=== PATIENT | male | born 1985 | race Asian ===

== ENCOUNTER 2021-06-29 09:44 | Outpatient (REF) | payer BC, SELFPAY ==
[2021-06-29 13:08] LABS: Folate 10.7 ng/mL (> or = 4.0); Vitamin B12 > 2000 pg/mL (200-900)
[2021-06-30 13:27] LABS: Transglutaminase Ab IgG <1.0 U/mL; Transglutaminase IgA <1.0 U/mL
[2021-07-01 14:26] LABS: H Pylori Breath Test Negative (Negative)
[2021-07-03 15:41] LABS: Vitamin D 25-OH, D2 <4 ng/mL; Vitamin D 25-OH, D3 47 ng/mL; Vitamin D 25-OH, Total 47 ng/mL (30-100)
== END 2021-06-29 09:45 | disposition home or self-care (01) ==
LOC: HO.LAB 09:44
PROVIDERS: PCP Internal Medicine; Referring Provider Internal Medicine; Visit Provider Nurse Practitioner Family
DX: R10.9 Unspecified abdominal pain (principal); K27.9 Peptic ulcer, site unspecified, unspecified as acute or chronic, without hemorrhage or perforation; K21.9 Gastro-esophageal reflux disease without esophagitis; E55.9 Vitamin D deficiency, unspecified; R19.7 Diarrhea, unspecified
CPT/HCPCS: 36415; 82306; 82607; 82746; 83013; 86364

== ENCOUNTER 2021-07-18 17:50 | Outpatient (REF) | payer BC, SELFPAY | END 2021-07-18 17:51 | disposition home or self-care (01) | LOC: HO.LNP 17:50 | PROVIDERS: Visit Provider Nurse Practitioner Family | DX: R30.0 Dysuria (principal) | CPT/HCPCS: 87086 ==

== ENCOUNTER → 2021-07-31 14:07 | Outpatient (REF) | payer BC, SELFPAY ==
--- NOTE | 2021-07-31 14:17 | ECG_ITS ---
Test Reason : r42 Blood Pressure : / mmHG Vent. Rate : 074 BPM Atrial Rate : 074 BPM P-R Int : 166 ms QRS Dur : 088 ms QT Int : 378 ms P-R-T Axes : 073 062 053 degrees QTc Int : 419 ms Normal sinus rhythm with sinus arrhythmia Normal ECG No previous ECGs available Referred By: Shira Franklin Electronically Signed By:MYRON ENRIQUEZ MD
[2021-07-31 14:31] LABS: MANUAL DIFF FLAG NO
[2021-07-31 14:56] LABS: Basophils Absolute Auto 0.1 X10*3/uL (0.0-0.2); Eosinophils Percent Auto 0.5 % (0-4); Hematocrit 46.8 % (42.0-52.0); Hemoglobin 16.2 g/dl (14.0-18.0); Imm Gran Abs Auto 0.01 X10*3/uL (0.00-0.03); Imm Gran Pct Auto 0.1 % (0.0-0.4); Lymphocytes Absolute Auto 2.1 X10*3/uL (1.2-4.9); Lymphocytes Percent Auto 26.3 % (20-40); Mean Corpuscular HGB Conc 34.6 g/dl (31.0-36.0); Mean Corpuscular Hemoglobin 31.8 pg (27.0-33.0); Mean Corpuscular Volume 91.8 fL (80.0-98.0); Mean Platelet Volume 10.2 fL (9.4-12.4); Monocytes Absolute Auto 0.6 X10*3/uL (0.1-1.2); Neutrophils Absolute Auto 5.2 x10*3/uL (2.0-8.3); Neutrophils Percent Auto 65.1 % (45-73); Platelet Count 247 X10*3/uL (160-400); Red Cell Distribution Width 11.7 % (11.0-16.0)
[2021-07-31 15:16] LABS: Alanine Aminotransferase 32 U/L (0-40); Albumin Level 4.7 g/dL (3.5-5.0); Alkaline Phosphatase 50 U/L (39-117); Anion Gap 12 (12-20); Aspartate Amino Transferase 23 U/L (5-37); Blood Urea Nitrogen 12 mg/dL (9-16); Calcium 10.3 mg/dL (8.4-10.2); Carbon Dioxide 29 mmol/L (22-29); Chloride 104 mmol/L (96-108); Estimated Glomerular Filt Rate > 60; Glucose Random 109 mg/dL (60-115); Potassium 3.8 mmol/L (3.3-5.1); Sodium 141 mmol/L (135-145); Total Protein 8.5 g/dL (6.5-8.0)
[2021-07-31 15:37] LABS: TSH reflex Free T4 0.85 uIU/mL (0.32-4.0)
== END ==
LOC: HO.CARD 14:07
PROVIDERS: PCP Internal Medicine; Visit Provider Nurse Practitioner Acute Care
DX: R42 Dizziness and giddiness (principal)
CPT/HCPCS: 36415; 80053; 84443; 85025; 93005

== ENCOUNTER 2021-08-29 01:33 | Emergency (ER) | payer BC, SELFPAY ==
[2021-08-29 01:41] VITALS: BP 127/87; PULSE 92; RESP 20; TEMP 36.7; O2SAT 98; BMI 23.4
--- NOTE | 2021-08-29 01:44 | ECG_ITS ---
Test Reason : SOB Blood Pressure : / mmHG Vent. Rate : 083 BPM Atrial Rate : 083 BPM P-R Int : 164 ms QRS Dur : 092 ms QT Int : 382 ms P-R-T Axes : 079 077 064 degrees QTc Int : 448 ms Normal sinus rhythm Normal ECG When compared with ECG of 31-JUL-2021 14:16, No significant change was found Referred By: Generic ED Physician Electronically Signed By:MYRON ENRIQUEZ MD
[2021-08-29 01:55] LABS: Hematocrit 45.1 % (42.0-52.0); Hemoglobin 15.4 g/dl (14.0-18.0); Mean Corpuscular HGB Conc 34.1 g/dl (31.0-36.0); Mean Corpuscular Hemoglobin 30.8 pg (27.0-33.0); Mean Corpuscular Volume 90.2 fL (80.0-98.0); Mean Platelet Volume 9.6 fL (9.4-12.4); Platelet Count 237 X10*3/uL (160-400); Red Cell Distribution Width 11.7 % (11.0-16.0); White Blood Count 7.9 X10*3/uL (4.8-10.8)
[2021-08-29 02:12] LABS: Alanine Aminotransferase 59 U/L (0-40); Albumin Level 4.5 g/dL (3.5-5.0); Alkaline Phosphatase 50 U/L (39-117); Anion Gap 13 (12-20); Aspartate Amino Transferase 31 U/L (5-37); Blood Urea Nitrogen 11 mg/dL (9-16); Calcium 10.3 mg/dL (8.4-10.2); Carbon Dioxide 28 mmol/L (22-29); Chloride 101 mmol/L (96-108); Creatinine Clr Calc Pharmacy 89.9; Estimated Glomerular Filt Rate > 60; Glucose Random 110 mg/dL (60-115); Sodium 138 mmol/L (135-145)
[2021-08-29 02:13] LABS: COVID-19 Test Negative (Negative); IDNOW Serial# 08D9AD1C; Influenza A Negative (Negative); Influenza B2 Negative (Negative)
--- NOTE | 2021-08-29 07:20 | ED.GENADULT ---
HPI - General Adult General Chief complaint: Anxiety Stated complaint: Trouble Breathing, anxiety Time Seen by Provider: 08/29/21 07:20 Source: patient Mode of arrival: ambulatory Limitations: no limitations History of Present Illness HPI narrative: patient having frequent panic attacks, waking up short of breath, feeling tingling. He is having these feelings at night. Feels lightheaded and slightly short of breath. He has not seen Dr. Traore Onset (ago): month(s) Severity: mild Associated symptoms: weakness Related Data Previous Rx's Medication Instructions Recorded omeprazole 20 mg capsule,delayed 20 mg PO DAILY 90 Days #90 cap 07/10/21 release hydroxyzine HCl 25 mg tablet 25 mg PO TID PRN #42 tab 07/31/21 melatonin 5 mg capsule 5 mg PO .at bed time #30 cap 08/29/21 pantoprazole 40 mg tablet,delayed 40 mg PO DAILY #20 tab 08/29/21 release (Protonix) Allergies Allergy/AdvReac Type Severity Reaction Status Date / Time No Known Allergies Allergy Verified 07/31/21 13:40 Review of Systems Constitutional: Constitutional: Reports no additional constitutional complaints Eyes: Eyes: Reports no additional eye complaints ENT: Denies dizziness Cardiovascular: Cardiovascular: Reports no additional cardiovascular complaints Respiratory: Respiratory: Reports as per HPI Gastrointestinal: Gastrointestinal: Reports no additional gastrointestinal complaints Musculoskeletal: Musculoskeletal: Reports no additional musculoskeletal complaints Integumentary/Breasts: Skin/Breast: Denies rash Neurologic: Reports system reviewed and no additional complaints, except as documented, Denies dizziness and Denies Sensory deficit (Neuro) Psychiatric: Psychiatric: Denies anxiety [facility] Past Medical History Medical History Chronic GERD Peptic ulcer disease Surgical History Hx of esophagogastroduodenoscopy No pertinent past surgical history Family History Family History Mother No problems noted. Father No problems noted. Sister Leukemia Social History Social History Housing: Apartment Alcohol intake: never Patient Tobacco Use Status: Never used Tobacco e-Cigarette/Vaping Use: Never Used Second Hand Smoke Exposure: No Advance Directives: No Advance Directives Information Provided: No service: No Current occupational status: employed Cognitive needs: No Hearing needs: No Vision needs: Yes Physical Exam ED Vital Signs: Vital Signs - 24 hr 08/29/21 01:41 08/29/21 07:57 08/29/21 10:27 Temperature 98.1 F 98.2 F 98.3 F Pulse Rate 92 64 Respiratory Rate 20 17 69 H Blood Pressure 127/87 122/74 120/67 Pulse Oximetry 98 100 99 BMI result Body Mass Index 23.4 Const General: healthy appearing Nutritional Appearance: average body habitus Orientation/consciousness: oriented to person and patient oriented x3 Limitations: no limitations HENMT Head: Yes normal to inspection Ears: external ears normal General nose exam: Normal external nose present Mouth: Normal oral and palatal mucosa present and oropharynx normal Throat: Yes posterior oropharynx normal Eyes General: appearance normal, both eyes and all related structures Neck Neck: Yes normal visual inspection Chest Chest palpation & inspection: normal inspection of the chest Resp Auscultation: clear to auscultation bilaterally Cardio Jugular venous distension: no JVD Rate: regular rate Rhythm: regular rhythm Heart sounds: S1 normal heart sound present and S2 normal heart sound present GI Inspection: Yes normal to inspection Palpation (GI): Soft to palpation, nontender and No hepatosplenomegaly present Auscultation: normal bowel sounds General: Yes no CVA tenderness Back/Spine/Pelvis Back: no CVA tenderness Skin General skin exam: no rashes or lesions noted Neuro General: oriented to person and patient oriented x3 Cranial nerves: Yes CN's II-XII intact bilaterally Motor exam (neuro): 5/5 motor strength present throughout Sensory Exam: No Sensory deficit (Neuro) Extrem General: Yes normal to inspection Psych Appearance: grossly normal Course Reevaluation(s) Reevaluation #1: seen and cleared by crisis. Will start on melatonin for sleep Time: 10:55 Medical Decision Making Lab Data Result diagrams: 08/29/21 01:46 08/29/21 01:46 Labs: Lab Results 08/29/21 08/29/21 08/29/21 Range/Units 01:46 01:46 01:46 WBC 7.9 (4.8-10.8) X10*3/uL RBC 5.00 (4.60-5.80) X10*6/uL Hgb 15.4 (14.0-18.0) g/dl Hct 45.1 (42.0-52.0) % MCV 90.2 (80.0-98.0) fL MCH 30.8 (27.0-33.0) pg MCHC 34.1 (31.0-36.0) g/dl RDW 11.7 (11.0-16.0) % Plt Count 237 (160-400) X10*3/uL MPV 9.6 (9.4-12.4) fL Absolute Nucleated RBC 0.000 (0.0-0.012) X10*3/uL Nucleated RBC % (auto) 0.0 (0.0-0.2) /100WBC Sodium 138 (135-145) mmol/L Potassium 4.0 (3.3-5.1) mmol/L Chloride 101 (96-108) mmol/L Carbon Dioxide 28 (22-29) mmol/L Anion Gap 13 (12-20) BUN 11 (9-16) mg/dL Creatinine 1.27 (0.5-1.4) mg/dL Estim Creat Clear Calc 89.9 Estimated GFR > 60 Random Glucose 110 (60-115) mg/dL Calcium 10.3 H (8.4-10.2) mg/dL Total Bilirubin 1.0 (0.0-1.0) mg/dL AST 31 (5-37) U/L ALT 59 H (0-40) U/L Alkaline Phosphatase 50 (39-117) U/L Total Protein 8.0 (6.5-8.0) g/dL Albumin 4.5 (3.5-5.0) g/dL COVID-19 (DEANNA) (Negative) COVID-19 Clin Com Influenza Type A (NASH) Negative (Negative) Influenza Type B (NASH) Negative (Negative) Influenza A & B Note See Note 08/29/21 Range/Units 01:46 WBC (4.8-10.8) X10*3/uL RBC (4.60-5.80) X10*6/uL Hgb (14.0-18.0) g/dl Hct (42.0-52.0) % MCV (80.0-98.0) fL MCH (27.0-33.0) pg MCHC (31.0-36.0) g/dl RDW (11.0-16.0) % Plt Count (160-400) X10*3/uL MPV (9.4-12.4) fL Absolute Nucleated RBC (0.0-0.012) X10*3/uL Nucleated RBC % (auto) (0.0-0.2) /100WBC Sodium (135-145) mmol/L Potassium (3.3-5.1) mmol/L Chloride (96-108) mmol/L Carbon Dioxide (22-29) mmol/L Anion Gap (12-20) BUN (9-16) mg/dL Creatinine (0.5-1.4) mg/dL Estim Creat Clear Calc Estimated GFR Random Glucose (60-115) mg/dL Calcium (8.4-10.2) mg/dL Total Bilirubin (0.0-1.0) mg/dL AST (5-37) U/L ALT (0-40) U/L Alkaline Phosphatase (39-117) U/L Total Protein (6.5-8.0) g/dL Albumin (3.5-5.0) g/dL COVID-19 (DEANNA) Negative (Negative) COVID-19 Clin Com See Note Influenza Type A (NASH) (Negative) Influenza Type B (NASH) (Negative) Influenza A & B Note Discharge Plan Discharge Clinical Impression: Acute anxiety, Chronic GERD Patient Disposition: Home, Self-Care Instructions: Gastroesophageal Reflux Disease (ED), Anxiety (ED) Prescriptions: New pantoprazole [Protonix] 40 mg tablet,delayed release (DR/EC) 40 mg PO DAILY Qty: 20 0RF melatonin 5 mg capsule 5 mg PO .at bed time Qty: 30 0RF No Action omeprazole 20 mg capsule,delayed release(DR/EC) 20 mg PO DAILY 90 Days Qty: 90 1RF hydroxyzine HCl 25 mg tablet 25 mg PO TID PRN (Reason: anxiety) Qty: 42 0RF Referrals: Aminata Manjarrez MD [Primary Care Provider] - 5 days
[2021-08-29 07:57] VITALS: BP 122/74; PULSE 64; RESP 17; TEMP 36.8; O2SAT 100
--- NOTE | 2021-08-29 09:14 | PC.NURSE ---
SMART SHEET DONE BY THIS RN
[2021-08-29 10:27] VITALS: BP 120/67; RESP 69; TEMP 36.8; O2SAT 99
--- NOTE | 2021-08-29 13:58 | MHC.CARE ---
CARE Team receives an order for a consult for pt due to an anxiety attack.? CARE Team meets with pt who explains that approximately a year and a half ago, pt relocated from [facility] to the with his girlfriend.? Pt reports that his parents are still in [facility] but he has sisters in the in [place].? 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 As a result his work/life balance has become unbalanced.? Pt stated that around the time his workload and work hours increased, he began to experience panic attacks and feelings of anxiety.? He stated that he has no hx of panic attacks or anxiety.? He reports that the panic attacks have been worsening and he has been awoken at night by them.? He stated that they have increased in number and he has been sleeping only 2-3hours a night. The benefits of securing a therapist were discussed with pt as well as the benefits of boundaries and work life balance.? Pt stated that he will begin looking for a therapist via [employer].? Interventions were discussed with pt and it was suggested he try these when he feels himself becoming anxious.? Pt requested medications to help him sleep.? CARE Team advises Dr. Morin.
== END 2021-08-29 11:14 | disposition home or self-care (01) ==
PROVIDERS: Emergency Provider Emergency Medicine; PCP Internal Medicine
DX: F41.9 Anxiety disorder, unspecified (principal); K21.9 Gastro-esophageal reflux disease without esophagitis; Z20.822 Contact with and (suspected) exposure to COVID-19
CPT/HCPCS: 80053; 85027; 87502; 87635; 93005; 99283

== ENCOUNTER 2021-10-09 14:04 | Outpatient (REF) | payer BC, SELFPAY | END 2021-10-09 14:05 | disposition home or self-care (01) | LOC: HO.LAB 14:04 | PROVIDERS: PCP Internal Medicine; Visit Provider Internal Medicine | DX: Z13.89 Encounter for screening for other disorder (principal) ==

== ENCOUNTER 2021-10-11 09:47 | Outpatient (REF) | payer BC, SELFPAY ==
[2021-10-11 11:04] LABS: Alanine Aminotransferase 40 U/L (0-40); Albumin Level 4.9 g/dL (3.5-5.0); Alkaline Phosphatase 52 U/L (39-117); Anion Gap 13 (12-20); Aspartate Amino Transferase 30 U/L (5-37); Blood Urea Nitrogen 14 mg/dL (9-16); Calcium 9.8 mg/dL (8.4-10.2); Carbon Dioxide 28 mmol/L (22-29); Chloride 103 mmol/L (96-108); Cholesterol 190 mg/dL; Estimated Glomerular Filt Rate > 60; Glucose Fasting 96 mg/dL (60-99); HDL Cholesterol 44 mg/dL; LDL Cholesterol Calculated 125 mg/dl; Potassium 4.1 mmol/L (3.3-5.1); Sodium 140 mmol/L (135-145); Total Protein 8.4 g/dL (6.5-8.0); Triglycerides 108 mg/dL
[2021-10-12 13:26] LABS: Calcium (PTHI) 10.1 mg/dL (8.6-10.3); PTHI 34 pg/mL (16-77)
[2021-10-13 19:32] LABS: Calcium, Random Urine 7.6 mg/dL
[2021-10-17 12:41] LABS: Calcium, Ionized 5.2 mg/dL (4.8-5.6)
== END 2021-10-11 09:48 | disposition home or self-care (01) ==
LOC: HO.LAB 09:47
PROVIDERS: PCP Internal Medicine; Visit Provider Internal Medicine
DX: Z00.00 Encounter for general adult medical examination without abnormal findings (principal); E83.52 Hypercalcemia
CPT/HCPCS: 36415; 80053; 80061; 82310; 82330; 83970

== ENCOUNTER 2021-10-15 08:11 | Day surgery (SDC) | payer BC, SELFPAY ==
--- NOTE | 2021-10-12 08:27 | HO.ANESPROP2 ---
Documented by User: Zoe Gallo NP 10/12/21 08:29 HPI - Anesthesia Eval Consult details Narrative: 36yo M for Upper Endoscopy PMF Active Problems Active Problems: All Active Problems (Updated 10/09/21 @ 09:45 by Vesta Nicholson RN) Burning with urination (Acute) Generalized anxiety disorder (Acute) Lightheadedness (Acute) Palpitations (Acute) Hospital discharge follow-up (Acute) Physical exam (Acute) Hypercalcemia (Acute) Tinnitus, left ear (Acute) BPPV (benign paroxysmal positional vertigo) (Acute) Peptic ulcer disease (Acute) Chronic GERD (Acute) Past Medical History Medical History Anxiety BPPV (benign paroxysmal positional vertigo) Chronic GERD Hypercalcemia Peptic ulcer disease Tinnitus, left ear Family History Family History Mother No problems noted. Father No problems noted. Sister Leukemia Surgical History Surgical History Hx of esophagogastroduodenoscopy No pertinent past surgical history Social History Social History Housing: Apartment Alcohol intake: never Patient Tobacco Use Status: Never used Tobacco e-Cigarette/Vaping Use: Never Used Second Hand Smoke Exposure: No Are you DNR?: No Advance Directives: No Advance Directives Information Provided: Yes Advance Directives on File: No Nutrition Risks: No Nutritional Risk service: No Current occupational status: employed Cognitive needs: No Hearing needs: No Vision needs: Yes Meds Allergies Allergy/AdvReac Type Severity Reaction Status Date / Time hydroxyzine Allergy Intermediate Palpitation Verified 10/15/21 08:23 s famotidine AdvReac Itching Verified 10/15/21 08:23 shellfish derived AdvReac Itching Verified 10/15/21 08:23 Home Medications Medication Instructions Recorded Confirmed Last Taken Type famotidine 10 mg tablet 40 mg PO DAILY 09/06/21 10/09/21 Unknown History Exam Exam Date and Time: October 12, [id number] Pertinent Lab Results Pertinent Lab Results: Laboratory Tests 08/29/21 10/11/21 01:46 10:17 WBC 7.9 Hgb 15.4 Hct 45.1 Plt Count 237 Sodium 140 Potassium 4.1 Chloride 103 Carbon Dioxide 28 BUN 14 Creatinine 1.06 Narrative Narrative: EKG 08/2021 Vent. Rate : 083 BPM ? ? Atrial Rate : 083 BPM ?? P-R Int : 164 ms? QRS Dur : 092 ms ? ? QT Int : 382 ms ? ? ? P-R-T Axes : 079 077 064 degrees ?? QTc Int : 448 ms ? Normal sinus rhythm Normal ECG When compared with ECG of 31-JUL-2021 14:16, No significant change was found Assessment and Plan Assessment Anesthesia Assessment: Chart Reviewed Documented by User: Ajit Myrick MD 10/15/21 08:26 PMFSH Past Medical History Medical History Anxiety BPPV (benign paroxysmal positional vertigo) Chronic GERD Hypercalcemia Peptic ulcer disease Tinnitus, left ear Family History Family History Mother No problems noted. Father No problems noted. Sister Leukemia Family history of problems with anesthesia: No Surgical History Surgical History Hx of esophagogastroduodenoscopy No pertinent past surgical history History of Problems with Anesthesia: No Social History Social History Housing: Apartment Alcohol intake: never Patient Tobacco Use Status: Never used Tobacco e-Cigarette/Vaping Use: Never Used Second Hand Smoke Exposure: No Are you DNR?: No Advance Directives: No Advance Directives Information Provided: Yes Advance Directives on File: No Nutrition Risks: No Nutritional Risk service: No Current occupational status: employed Cognitive needs: No Hearing needs: No Vision needs: Yes Meds Allergies Allergy/AdvReac Type Severity Reaction Status Date / Time hydroxyzine Allergy Intermediate Palpitation Verified 10/15/21 08:23 s famotidine AdvReac Itching Verified 10/15/21 08:23 shellfish derived AdvReac Itching Verified 10/15/21 08:23 Home Medications Medication Instructions Recorded Confirmed Last Taken Type famotidine 10 mg tablet 40 mg PO DAILY 09/06/21 10/09/21 Unknown History Exam Airway Mallampati Class: II TM Dist: >3cm Neck ROM: Full Loose/Missing/Broken Teeth: No Heart: rrr Lungs: clear Assessment and Plan Final Anesthetic Review Family History of Problems with Anesthesia: No History of Problems with Anesthesia: No NPO: Yes ASA Class: II Final Preanesthetic Review: No Changes in Pt Med Stat, Meds/Allgs Chart Reviewed, Consent Obtained/Reviewed and Anes Risks/Benef Reviewed Patient Risk: Low Procedure Risk: Low Anesthetic Plan Anesthetic Plan: MAC: Disposition: Standard PACU
[2021-10-15 08:20] VITALS: BMI 23.0
[2021-10-15 08:30] VITALS: BP 131/78; PULSE 72; RESP 18; TEMP 36.7; O2SAT 99
[2021-10-15] MEDS: Lactated Ringers 1,000 ML 100 ML IVCONT (08:43)
--- NOTE | 2021-10-15 09:18 | MHC.SHP ---
Pre-Procedural Eval Section A Date of Service: 10/15/21 The patient is an INPATIENT: No The History & Physical has been completed within 30 days and I have reviewed it.: No Section B Chief Complaint: reflux disease Details of Present Illness: GERD, abdominal bloating Relevant Family History (Specify if Yes): No Relevant Social History: None Present Medications: see Short Stay Collaborative assessment Medical History: Significant History (Chronic GERD Peptic ulcer disease) History of Previous Operations: Relevant previous surgery/procedure and date(s) (History of EGD) Allergies: Allergies Allergy/AdvReac Type Severity Reaction Status Date / Time hydroxyzine Allergy Intermediate Palpitation Verified 10/15/21 08:23 s famotidine AdvReac Itching Verified 10/15/21 08:23 shellfish derived AdvReac Itching Verified 10/15/21 08:23 Review of Systems Sugical H&P ROS: Negative: Constitution, Cardiovascular and Respiratory and Yes, Specify: Gastrointestinal (abd pain and bloating) Exam Surgical H&P Exam: Normal: Heart, Normal: Lungs, Normal: Extremities and Normal: Abdomen Plan Diagnosis/Plan: Unchanged I have reviewed the history and physical and performed a pertinent physical examination on my patient. No changes have occurred unless specified.
--- NOTE | 2021-10-15 09:26 | P.BOP_ITS ---
Brief Operative Note Date of Service: 10/15/21 Pre-op diagnosis: GERD, upper abdominal pain and bloating Post-op diagnosis: other (Gastritis, multiple duodenal ulcers) Procedure: FLEXIBLE TRANSORAL UPPER GASTROINTESTINAL ENDOSCOPY WITH BIOPSIES Consent: Indications for the procedure and potential complications of bleeding, perforation, reaction to medications and missed diagnosis were discussed with the patient and informed consent was obtained. Instrument: Olympus GIF H 190 mid size upper endoscope Monitoring: Vital signs and clinical assessment, continuous EKG monitoring, Pulse oximetry, Carbon Dioxide monitoring and blood pressure monitoring were done throughout the procedure. Procedure: The patient was placed in the left lateral decubitis position and pre-procedure medications were administered and a bite block was placed. The endoscope was inserted into the mouth and advanced under direct vision to the third part of duodenum. A careful inspection was made as the upper endoscope was withdrawn including a retroflexed examination of the proximal stomach; Findings and interventions are described below. Findings: Larynx: Normal Esophagus: GE junction at 40 cms. No esophagitis or Kapoor's. Stomach: Small amount of retained food in the stomach. Moderate diffuse gastric erythema with multiple chronic appearing pre-pyloric erosions. Biopsies were obtained to check for H pylori. Grade 2 flap valve on retroflexed examination of the cardia. Duodenum: Multiple 1-2 cms linear superficial ulcers in the apex of the bulb - biopsied. Normal bulb and descending duodenum. Biopsies were obtained from 3rd part of the duodenum to check for celiac sprue. Intervention: Biopsies as noted above Impression and Post Procedure Diagnosis: Endoscopy Findings: STOMACH: Moderate diffuse gastric erythema with multiple chronic appearing pre- pyloric erosions. Biopsies were obtained to check for H pylori. ? Mild gastroparesis versus slow gastric emptying due to duodenal ulcers Grade 2 flap valve on retroflexed examination of the cardia. DUODENUM: Multiple 1-2 cms linear superficial ulcers in the apex of the bulb - biopsied. Normal bulb and descending duodenum. Biopsies were obtained from 3rd part of the duodenum to check for celiac sprue. Plan: Await pathology results Patient has an appointment on 11/02/21 in the GI Clinic with Colleen Branham M.D. Above findings were reviewed with the patient and PUD handout was given in the discharge area. Pt was advised to start taking Omeprazole 20 mg twice daily and stop Famotidine. Surgeon: Colleen Branham MD Anesthesia: MAC (Dr Myrick) Was an Building Maintenance Custodian used for this Procedure?: Yes Building Maintenance Custodian: Maria Luisa Odonnell Estimated blood loss (mL): 0 Pathology: other (a: small bowel biopsies b: biopsies of duodenal ulcer c: gastric antrum) Condition: stable Disposition: PACU
[2021-10-15 09:53] VITALS: BP 92/53; PULSE 87; RESP 16; TEMP 36.6; O2SAT 97
[2021-10-15 10:08] VITALS: BP 105/64; PULSE 70; RESP 16; TEMP 36.7; O2SAT 97
--- NOTE | 2021-10-17 16:27 | P.OP_ITS ---
Operative Note Operative Note Date of Service: 10/15/21 Narrative: Pre-op diagnosis: GERD, upper abdominal pain and bloating Post-op diagnosis:?other (Gastritis, multiple duodenal ulcers) Procedure: FLEXIBLE TRANSORAL UPPER GASTROINTESTINAL ENDOSCOPY WITH BIOPSIES Consent:?Indications for the procedure and potential complications of bleeding, perforation, reaction to medications and missed diagnosis were discussed with the patient and informed consent was obtained. Instrument:?Olympus GIF H 190 mid size upper endoscope Monitoring: Vital signs and clinical assessment, continuous EKG monitoring, Pulse oximetry, Carbon Dioxide monitoring and blood pressure monitoring were done throughout the procedure. Procedure:?The patient was placed in the left lateral decubitis position and pre-procedure medications were administered and a bite block was placed. The endoscope was inserted into the mouth and advanced under direct vision to the third part of duodenum. A careful inspection was made as the upper endoscope was withdrawn including a retroflexed examination of the proximal stomach; Findings and interventions are described below. Findings: Larynx:? Normal Esophagus: GE junction at 40 cms. No esophagitis or Kapoor's. Stomach: Small amount of retained food in the stomach. Moderate diffuse gastric erythema with multiple chronic appearing pre-pyloric erosions. Biopsies were obtained to check for H pylori. Grade 2 flap valve on retroflexed examination of the cardia. Duodenum: Multiple 1-2 cms linear superficial ulcers in the apex of the bulb - biopsied.? Normal bulb and descending duodenum.? Biopsies were obtained from 3rd part of the duodenum to check for celiac sprue. Intervention: Biopsies as noted above Impression and Post Procedure Diagnosis: Endoscopy Findings: STOMACH: Moderate diffuse gastric erythema with multiple chronic appearing pre- pyloric erosions. Biopsies were obtained to check for H pylori. ? Mild gastroparesis versus slow gastric emptying due to duodenal ulcers Grade 2 flap valve on retroflexed examination of the cardia. DUODENUM: Multiple 1-2 cms linear superficial ulcers in the apex of the bulb - biopsied.? Normal bulb and descending duodenum.? Biopsies were obtained from 3rd part of the duodenum to check for celiac sprue. Plan: Await pathology results Patient has an appointment on 11/02/21 in the GI Clinic with Colleen Branham M.D. Above findings were reviewed with the patient and PUD handout? was given in the discharge area. Pt was advised to start taking Omeprazole 20 mg twice daily and stop Famotidine. Surgeon: Colleen Branham MD Anesthesia:?MAC (Dr Myrick) Was an Railcar Foreman used for this Procedure?:?Yes Railcar Foreman:?Maria Luisa Odonnell Estimated blood loss (mL):?0 Pathology:?other (a: small bowel biopsies? b: biopsies of duodenal ulcer? c: gastric antrum) Condition:?stable Disposition:?PACU
== END 2021-10-15 10:54 | disposition home or self-care (01) ==
PROVIDERS: PCP Internal Medicine; Visit Provider Internal Medicine Gastroenterology
PROC: 0DJ08ZZ Inspection of Upper Intestinal Tract, Via Natural or Artificial Opening Endoscopic (ICD-10-PCS; CPT 43235; principal; 2021-10-15 09:20)
DX: K21.9 Gastro-esophageal reflux disease without esophagitis (principal); K29.50 Unspecified chronic gastritis without bleeding; K26.9 Duodenal ulcer, unspecified as acute or chronic, without hemorrhage or perforation; Z79.899 Other long term (current) drug therapy
CPT/HCPCS: 43239; 88305; 88342

== ENCOUNTER 2021-11-29 10:22 | Outpatient (REF) | payer BC, SELFPAY ==
--- NOTE | ~2021-11-29 | US_ITS ---
EXAMINATION: US ABDOMEN COMPLETE CLINICAL INFORMATION: Upper abdominal pain, unspecified. COMPARISON: None TECHNIQUE: Real-time imaging of the abdominal viscera. FINDINGS: PANCREAS: The head and body the pancreas are normal. The tail is not well seen due to bowel gas. ABDOMINAL AORTA: The proximal, mid, and distal segments are normal in caliber. INFERIOR VENA CAVA: Visualized portions are normal. LIVER: Normal. The liver is normal in size. The liver contour is normal. Parenchymal echogenicity is normal. No focal hepatic lesion. There is no intrahepatic biliary duct dilatation seen. GALLBLADDER: Normal. The gallbladder is physiologically distended without evidence of stones, sludge, polyps, wall thickening or pericholecystic fluid. COMMON BILE DUCT: Normal in caliber measuring 0.3 cm in diameter. RIGHT KIDNEY: Normal. No hydronephrosis. No renal calculi or focal parenchymal lesions. The kidney measures 11.0 cm in maximum dimension. LEFT KIDNEY: Normal. No hydronephrosis. No renal calculi or focal parenchymal lesions. The kidney measures 10.5 cm in maximum dimension. SPLEEN: Normal. The spleen measures 8.5 cm in maximum dimension. FREE FLUID: None. US/US abdomen complete IMPRESSION: Limited visualization of the tail the pancreas otherwise unremarkable exam.
== END 2021-11-29 10:23 | disposition home or self-care (01) ==
LOC: HO.HMGCX 10:22
PROVIDERS: Visit Provider Internal Medicine Gastroenterology
DX: R10.10 Upper abdominal pain, unspecified (principal)
CPT/HCPCS: 76700

== ENCOUNTER 2021-12-15 11:29 | Outpatient (REF) | payer BC, SELFPAY ==
[2021-12-22 19:32] LABS: Pancreatic Elastase-1 >500 mcg/g
== END 2021-12-15 11:30 | disposition home or self-care (01) ==
LOC: HO.LNP 11:29
PROVIDERS: Visit Provider Nurse Practitioner Family
DX: R10.9 Unspecified abdominal pain (principal)
CPT/HCPCS: 82656

== ENCOUNTER 2021-12-30 12:34 | Emergency (ER) | payer BC, SELFPAY ==
--- NOTE | ~2021-12-30 | XR_ITS ---
EXAMINATION: XR CHEST CLINICAL INFORMATION: Shortness of breath COMPARISON: None TECHNIQUE: 2 views of the chest were obtained. FINDINGS: No significant abnormality is noted involving the heart, lungs, mediastinum, bony thorax or soft tissues. XR/XR chest 2V IMPRESSION: Unremarkable examination.
[2021-12-30 12:39] VITALS: BP 137/88; PULSE 93; RESP 16; TEMP 37; O2SAT 100; BMI 22.3
--- NOTE | 2021-12-30 13:01 | ECG_ITS ---
Test Reason : SOB Blood Pressure : / mmHG Vent. Rate : 072 BPM Atrial Rate : 072 BPM P-R Int : 176 ms QRS Dur : 092 ms QT Int : 380 ms P-R-T Axes : 077 081 066 degrees QTc Int : 416 ms Normal sinus rhythm Normal ECG When compared with ECG of 29-AUG-2021 01:34, No significant change was found Referred By: Aaron Hammond Electronically Signed By:ROCIO DOSS
--- OUTSIDE RECORDS SUMMARY | 2021-12-30 13:15 | XMS_ITS | Continuity of Care Document ---
:1985 Author Organization [facility] Address [address] [place] [address]- Care Team Providers Name Role Phone Not on Staff, PCP Primary Care Physician Unavailable Encounter [facility] NBR [id number] Date(s): 09/20/21 - 10/20/21 [facility] [address] [place] [id number]- Attending Physician: Mohan Francisco Admitting Physician: Mohan Francisco Referring Physician: Mohan Francisco
--- OUTSIDE RECORDS SUMMARY | 2021-12-30 13:15 | XMS_ITS | Continuity of Care Document ---
:1985 Author Organization [facility] Address [address] [place] [address]- Care Team Providers Name Role Phone Not on Staff, PCP Primary Care Physician Unavailable [facility] [id number] Date(s): 09/12/21 - 10/20/21 [facility] [address] [place] [id number]- Attending Physician: Perri Viramontes MD Referring Physician: Shadi Flores
[2021-12-30 13:27] LABS: MANUAL DIFF FLAG NO
[2021-12-30 13:29] LABS: Basophils Absolute Auto 0.1 X10*3/uL (0.0-0.2); Basophils Percent Auto 0.6 % (0-2); Eosinophils Absolute Auto 0.1 X10*3/uL (0.0-0.4); Eosinophils Percent Auto 0.6 % (0-4); Hematocrit 45.3 % (42.0-52.0); Hemoglobin 15.7 g/dl (14.0-18.0); Imm Gran Abs Auto 0.02 X10*3/uL (0.00-0.03); Imm Gran Pct Auto 0.2 % (0.0-0.4); Lymphocytes Absolute Auto 1.7 X10*3/uL (1.2-4.9); Lymphocytes Percent Auto 20.5 % (20-40); Mean Corpuscular HGB Conc 34.7 g/dl (31.0-36.0); Mean Corpuscular Hemoglobin 31.7 pg (27.0-33.0); Mean Corpuscular Volume 91.3 fL (80.0-98.0); Mean Platelet Volume 10.5 fL (9.4-12.4); Monocytes Absolute Auto 0.7 X10*3/uL (0.1-1.2); Monocytes Percent Auto 8.2 % (2-11); Neutrophils Absolute Auto 5.6 x10*3/uL (2.0-8.3); Neutrophils Percent Auto 69.9 % (45-73); Platelet Count 221 X10*3/uL (160-400); Red Blood Count 4.96 X10*6/uL (4.60-5.80)
[2021-12-30 13:44] LABS: Anion Gap 18 (12-20); Blood Urea Nitrogen 18 mg/dL (9-16); Calcium 9.4 mg/dL (8.4-10.2); Carbon Dioxide 23 mmol/L (22-29); Chloride 100 mmol/L (96-108); Creatinine Clr Calc Pharmacy 99.8; Estimated Glomerular Filt Rate > 60; Glucose Random 89 mg/dL (60-115); Potassium 3.8 mmol/L (3.3-5.1); Sodium 137 mmol/L (135-145)
--- NOTE | 2021-12-30 15:09 | ED_ITS ---
HPI - General Adult General Chief complaint: Dyspnea Stated complaint: SOB Time Seen by Provider: 12/30/21 13:01 History of Present Illness HPI narrative: Patient complains of feeling shortness of breath rapid breathing chest tightness fingers tingling, mild dizziness and some anxiety This is similar to prior episodes but was stronger today, he had no chest pain no fainting no feeling faint no exertional symptoms no sweating no vomiting Related Data Previous Rx's Medication Instructions Recorded lorazepam 1 mg tablet (Ativan) 1 mg PO BID PRN anxiety #10 tabs 12/30/21 Allergies Allergy/AdvReac Type Severity Reaction Status Date / Time hydroxyzine Allergy Intermediate Palpitation Verified 01/10/22 14:19 s famotidine AdvReac Itching Verified 01/10/22 14:19 shellfish derived AdvReac Itching Verified 01/10/22 14:19 Review of Systems Review of Systems: Negative no fever no chills no confusion no diaphoresis no exertional symptoms no fainting no feeling faint no headache no neck pain no stiff neck no chest pain no cough no sputum no abdominal pain no nausea or vomiting no muscle weakness no loss of sensation Yes all other systems are reviewed and are negative [facility] Past Medical History Source: nursing notes reviewed Medical History Anxiety BPPV (benign paroxysmal positional vertigo) Chronic GERD Hypercalcemia Peptic ulcer disease Tinnitus, left ear Surgical History Hx of esophagogastroduodenoscopy No pertinent past surgical history Family History Family History Mother No problems noted. Father No problems noted. Sister Leukemia Social History Social History Housing: Apartment Alcohol intake: never Patient Tobacco Use Status: Never used Tobacco e-Cigarette/Vaping Use: Never Used Second Hand Smoke Exposure: No service: No Current occupational status: employed Cognitive needs: No Hearing needs: No Vision needs: Yes Physical Exam ED Vital Signs: Vital Signs - 24 hr 12/30/21 12:39 Temperature 98.6 F Pulse Rate 93 Respiratory Rate 16 Blood Pressure 137/88 Pulse Oximetry 100 Oxygen Delivery Method Room Air BMI result Body Mass Index 22.3 General appearance no acute distress Eyes no redness or discharge, pupils equal round reactive to light extraocular motions are intact The pharynx was clear well hydrated Neck is supple Respiratory no distress Chest clear to auscultation bilateral Heart no murmur Abdomen soft nontender Extremities no edema, no calf tenderness no calf swelling Neuro gait and balance are normal, interaction both comprehension and expression are normal, motor is 5/5 x4, cerebellar exam is normal Course Course Course Narrative: Chemistry and CBC were normal, chest x-ray was normal EKG was normal sinus rhythm with no acute ST changes, normal intervals no acute ischemic changes Patient is advised that no acute findings on exam or workup and symptoms are likely from anxiety and he will follow with his doctor for further evaluation Medical Decision Making Lab Data Lab results reviewed: Yes I reviewed the patient's lab results. Result diagrams: 12/30/21 13:20 12/30/21 13:20 Labs: Lab Results 12/30/21 12/30/21 Range/Units 13:20 13:20 WBC 8.0 (4.8-10.8) X10*3/uL RBC 4.96 (4.60-5.80) X10*6/uL Hgb 15.7 (14.0-18.0) g/dl Hct 45.3 (42.0-52.0) % MCV 91.3 (80.0-98.0) fL MCH 31.7 (27.0-33.0) pg MCHC 34.7 (31.0-36.0) g/dl RDW 12.0 (11.0-16.0) % Plt Count 221 (160-400) X10*3/uL MPV 10.5 (9.4-12.4) fL Immature Gran % (Auto) 0.2 (0.0-0.4) % Neut % (Auto) 69.9 (45-73) % Lymph % (Auto) 20.5 (20-40) % [place] % (Auto) 8.2 (2-11) % Eos % (Auto) 0.6 (0-4) % Baso % (Auto) 0.6 (0-2) % Lymph # (Auto) 1.7 (1.2-4.9) X10*3/uL [place] # (Auto) 0.7 (0.1-1.2) X10*3/uL Eos # (Auto) 0.1 (0.0-0.4) X10*3/uL Baso # (Auto) 0.1 (0.0-0.2) X10*3/uL Abs Immat Gran (auto) 0.02 (0.00-0.03) X10*3/uL Absolute Neuts (auto) 5.6 (2.0-8.3) x10*3/uL Absolute Nucleated RBC 0.000 (0.0-0.012) X10*3/uL Nucleated RBC % (auto) 0.0 (0.0-0.2) /100WBC Sodium 137 (135-145) mmol/L Potassium 3.8 (3.3-5.1) mmol/L Chloride 100 (96-108) mmol/L Carbon Dioxide 23 (22-29) mmol/L Anion Gap 18 (12-20) BUN 18 H (9-16) mg/dL Creatinine 1.07 (0.5-1.4) mg/dL Estim Creat Clear Calc 99.8 Estimated GFR > 60 Random Glucose 89 (60-115) mg/dL Calcium 9.4 (8.4-10.2) mg/dL Discharge Plan Discharge Clinical Impression: Anxiety Patient Disposition: Home, Self-Care Additional Instructions: Our workup today did not find any dangerous or worrisome cause of your shortness of breath and fingers tingling Likely this is from anxiety so we are going to try the medicine Ativan next time you get an attack and see if it helps Follow with your doctor as Ativan just offered short-term brief relief and there other medications to prevent anxiety attacks and help with anxiety Return to the ER any time for chest pain shortness of breath any worse condition any concerns Prescriptions: New lorazepam [Ativan] 1 mg tablet 1 mg PO BID PRN (Reason: anxiety) Qty: 10 0RF Rx Instructions: Medication may cause drowsiness, no driving for 6 hours after taking Interventions: ED Discharge Assessment Last Done: 12/30/21 15:14 Discharge Date/Time: 12/30/21 15:16
== END 2021-12-30 15:16 | disposition home or self-care (01) ==
PROVIDERS: Physician Assistant Medical; Emergency Provider Emergency Medicine Emergency Medical Services; PCP Internal Medicine
DX: R06.02 Shortness of breath (principal); R42 Dizziness and giddiness; F41.1 Generalized anxiety disorder; F43.0 Acute stress reaction; Z79.899 Other long term (current) drug therapy
CPT/HCPCS: 36415; 71046; 80048; 85025; 93005; 99283

== ENCOUNTER 2022-03-20 11:25 | Outpatient (REF) | payer BC, SELFPAY ==
[2022-03-20 11:58] LABS: Appearance Urine Clear; Color Urine Yellow; Glucose Urine UA Negative (Negative); Leukocyte Esterase Urine Negative (Negative); Nitrite Urine Negative (Negative); PH 6.5 (5.0-9.0); Specific Gravity - Urine <= 1.005 (1.005-1.025); Urine Blood Negative (Negative); Urine Ketones Negative (Negative); Urine Protein Negative (Neg-Trace)
== END 2022-03-20 11:26 | disposition home or self-care (01) ==
LOC: HO.LAB 11:25
PROVIDERS: PCP Internal Medicine; Visit Provider Internal Medicine
DX: R30.0 Dysuria (principal)
CPT/HCPCS: 81003

== ENCOUNTER → 2022-04-11 07:45 | Outpatient (REF) | payer BC, SELFPAY ==
--- NOTE | ~2022-04-11 | NM_ITS ---
EXAMINATION: RADIONUCLIDE SOLID FOOD GASTRIC EMPTYING 4-HOUR STUDY CLINICAL INFORMATION: Early satiety. COMPARISON: No previous gastric emptying study is available for comparison. TECHNIQUE: A standard meal consisting of 4 oz of Egg Beaters brand tagged with 1.0 mCi Tc-99m Sulfur Colloid, 8 oz water and 2 slices of toast with jelly was administered orally to the patient. Images were obtained using a dual head gamma camera in the anterior and posterior projections over of the stomach immediately post ingestion and at hourly intervals up to 3 hours post ingestion. Images were not obtained at 4 hours due to the minimal retention at 3 hours. The anterior and posterior counts at each time interval were averaged using the geometric mean and expressed as percentage of the immediate post ingestion counts. FINDINGS: There is good visualization of activity in the stomach immediately post ingestion. As the study progresses, there is good clearance of activity from the stomach and visualization of progressively increasing small bowel activity. By the end of the study, there is almost no retention noted in the stomach. Retention in the stomach at each time interval was: 1 hour 42% (normal 37%-90%) 2 hours 11% (normal 30%-60%) 3 hours 2% 4 hours (Not Obtained) (normal 0%-10%) NM/NM gastric emptying study IMPRESSION: Normal solid food gastric emptying study.
== END ==
LOC: HO.NUCMED 07:45
PROVIDERS: PCP Internal Medicine; Visit Provider Internal Medicine Gastroenterology
DX: R10.10 Upper abdominal pain, unspecified (principal); R68.81 Early satiety
CPT/HCPCS: 78264; A9541

== ENCOUNTER → 2022-04-19 08:53 | Outpatient (BNVA) | payer BC, SELFPAY | PROVIDERS: PCP Internal Medicine; Visit Provider Internal Medicine Gastroenterology | DX: R68.81 Early satiety (principal) ==

== ENCOUNTER 2022-04-20 08:09 | Outpatient (REF) | payer BC, SELFPAY ==
[2022-04-20 08:42] LABS: MANUAL DIFF FLAG NO
[2022-04-20 09:18] LABS: Basophils Absolute Auto 0.1 X10*3/uL (0.0-0.2); Basophils Percent Auto 1.3 % (0-2); Eosinophils Absolute Auto 0.1 X10*3/uL (0.0-0.4); Hematocrit 47.8 % (42.0-52.0); Hemoglobin 16.2 g/dl (14.0-18.0); Imm Gran Abs Auto 0.01 X10*3/uL (0.00-0.03); Imm Gran Pct Auto 0.2 % (0.0-0.4); Lymphocytes Absolute Auto 2.1 X10*3/uL (1.2-4.9); Lymphocytes Percent Auto 38.1 % (20-40); Mean Corpuscular HGB Conc 33.9 g/dl (31.0-36.0); Mean Corpuscular Hemoglobin 30.6 pg (27.0-33.0); Mean Corpuscular Volume 90.4 fL (80.0-98.0); Mean Platelet Volume 11.1 fL (9.4-12.4); Monocytes Absolute Auto 0.4 X10*3/uL (0.1-1.2); Monocytes Percent Auto 7.2 % (2-11); Neutrophils Absolute Auto 2.9 x10*3/uL (2.0-8.3); Neutrophils Percent Auto 51.2 % (45-73); Platelet Count 219 X10*3/uL (160-400); Red Blood Count 5.29 X10*6/uL (4.60-5.80); White Blood Count 5.6 X10*3/uL (4.8-10.8)
[2022-04-20 09:59] LABS: Alanine Aminotransferase 122 U/L (0-40); Albumin Level 4.6 g/dL (3.5-5.0); Alkaline Phosphatase 52 U/L (39-117); Anion Gap 13 (12-20); Aspartate Amino Transferase 91 U/L (5-37); Bilirubin Total 1.1 mg/dL (0.0-1.0); Blood Urea Nitrogen 17 mg/dL (9-16); C Reactive Protein 0.12 mg/dL (< or = 0.50); Calcium 10.1 mg/dL (8.4-10.2); Carbon Dioxide 29 mmol/L (22-29); Chloride 104 mmol/L (96-108); Estimated Glomerular Filt Rate > 60; Glucose Random 95 mg/dL (60-115); Lipase 30 U/L (8-78); Potassium 4.5 mmol/L (3.3-5.1); Sodium 141 mmol/L (135-145)
[2022-04-20 10:22] LABS: Folate 11.1 ng/mL (> or = 4.0); Vitamin B12 1327 pg/mL (200-900)
[2022-04-22 14:48] LABS: Immunoglobulin A 354 mg/dL (47-310)
[2022-04-24 05:28] LABS: Gastrin <15 pg/mL (<=100)
[2022-04-26 18:33] LABS: C1Q Complement Component 6.9 mg/dL (5.0-8.6)
== END 2022-04-20 08:10 | disposition home or self-care (01) ==
LOC: HO.LAB 08:09
PROVIDERS: PCP Internal Medicine; Visit Provider Internal Medicine Gastroenterology
DX: K29.81 Duodenitis with bleeding (principal); R10.10 Upper abdominal pain, unspecified
CPT/HCPCS: 36415; 80053; 82607; 82746; 82784; 82941; 83690; 85025; 86140; 86160

== ENCOUNTER 2022-04-23 13:16 | Day surgery (SDC) | payer BC, SELFPAY ==
--- NOTE | 2022-04-22 10:37 | HO.ANESPROP2 ---
Documented by User: Zoe Gallo NP 04/22/22 10:38 HPI - Anesthesia Eval Consult details Narrative: 37yo M for ?Upper Endoscopy s/p EGD 09/2021 with MAC PMFSH Active Problems Active Problems: All Active Problems (Updated 04/22/22 @ 10:35 by Colleen Branham MD) Elevated LFTs (Acute) Asthma (Acute) Early satiety (Acute) Upper abdominal pain (Acute) Multiple duodenal ulcers (Acute) Burning with urination (Acute) Generalized anxiety disorder (Acute) Lightheadedness (Acute) Palpitations (Acute) Hospital discharge follow-up (Acute) Physical exam (Acute) Hypercalcemia (Acute) Tinnitus, left ear (Acute) BPPV (benign paroxysmal positional vertigo) (Acute) Peptic ulcer disease (Acute) Chronic GERD (Acute) Past Medical History Medical History Anxiety BPPV (benign paroxysmal positional vertigo) Chronic GERD Hypercalcemia Peptic ulcer disease Tinnitus, left ear Family History Family History Mother No problems noted. Father No problems noted. Sister Leukemia Family history of problems with anesthesia: No Surgical History Surgical History Hx of esophagogastroduodenoscopy No pertinent past surgical history History of Problems with Anesthesia: No Social History Social History Housing: Apartment Alcohol intake: never Patient Tobacco Use Status: Never used Tobacco e-Cigarette/Vaping Use: Never Used Second Hand Smoke Exposure: No service: No Current occupational status: employed Cognitive needs: No Hearing needs: No Vision needs: Yes Meds Allergies Allergy/AdvReac Type Severity Reaction Status Date / Time hydroxyzine Allergy Intermediate Palpitation Verified 04/19/22 09:02 s omeprazole Allergy Itching Verified 04/23/22 15:10 famotidine AdvReac Itching Verified 04/19/22 09:02 shellfish derived AdvReac Itching Verified 04/19/22 09:02 Exam Exam Date and Time: April 22, 2022 1037 Pertinent Lab Results Pertinent Lab Results: Laboratory Tests 04/20/22 04/20/22 08:41 08:41 WBC 5.6 Hgb 16.2 Hct 47.8 Plt Count 219 Sodium 141 Potassium 4.5 Chloride 104 Carbon Dioxide 29 BUN 17 H Creatinine 1.25 Assessment and Plan Assessment Anesthesia Assessment: Chart Reviewed Final Anesthetic Review Family History of Problems with Anesthesia: No History of Problems with Anesthesia: No Documented by User: Anurag Reilly MD 04/23/22 17:53 PMFSH Past Medical History Medical History Anxiety BPPV (benign paroxysmal positional vertigo) Chronic GERD Hypercalcemia Peptic ulcer disease Tinnitus, left ear Family History Family History Mother No problems noted. Father No problems noted. Sister Leukemia Surgical History Surgical History Hx of esophagogastroduodenoscopy No pertinent past surgical history Social History Social History Housing: Apartment Alcohol intake: never Patient Tobacco Use Status: Never used Tobacco e-Cigarette/Vaping Use: Never Used Second Hand Smoke Exposure: No service: No Current occupational status: employed Cognitive needs: No Hearing needs: No Vision needs: Yes Meds Allergies Allergy/AdvReac Type Severity Reaction Status Date / Time hydroxyzine Allergy Intermediate Palpitation Verified 04/19/22 09:02 s omeprazole Allergy Itching Verified 04/23/22 15:10 famotidine AdvReac Itching Verified 04/19/22 09:02 shellfish derived AdvReac Itching Verified 04/19/22 09:02 Exam Airway Mallampati Class: II TM Dist: >3cm Neck ROM: Full Loose/Missing/Broken Teeth: Yes Heart: S1,S2 Lungs: b/l breath sounds Assessment and Plan Assessment Anesthesia Assessment: Anesthesia Plan Discussed Final Anesthetic Review NPO: Yes ASA Class: II Final Preanesthetic Review: Meds/Allgs Chart Reviewed, Consent Obtained/Reviewed and Anes Risks/Benef Reviewed Patient Risk: Intermediate Procedure Risk: Intermediate Anesthetic Plan Anesthetic Plan: MAC: Disposition: Standard PACU
[2022-04-23 13:46] VITALS: BMI 21.6
[2022-04-23 14:00] VITALS: BP 106/69; PULSE 92; RESP 16; TEMP 37.1; O2SAT 98
--- NOTE | 2022-04-23 14:54 | MHC.SHP ---
Pre-Procedural Eval Section A Date of Service: 04/23/22 The patient is an INPATIENT: No Changes since office visit: Yes Patient answered all questions; No Cold of Flu in the past 2 weeks, No New Medical Problems and No Changes in Medication The History & Physical has been completed within 30 days and I have reviewed it.: Yes Section B Chief Complaint: duodenitis,gerd,early satiety,upper abdominal pain Allergies: Allergies Allergy/AdvReac Type Severity Reaction Status Date / Time hydroxyzine Allergy Intermediate Palpitation Verified 04/19/22 09:02 s famotidine AdvReac Itching Verified 04/19/22 09:02 shellfish derived AdvReac Itching Verified 04/19/22 09:02 Plan Diagnosis/Plan: Unchanged I have reviewed the history and physical and performed a pertinent physical examination on my patient. No changes have occurred unless specified. Time Spent With Patient Time: Total time managing care of this patient today ____ minutes.
--- NOTE | 2022-04-23 15:00 | PM.OP ---
Brief Operative Note Date of Service: 04/23/22 Pre-op diagnosis: duodenitis,gerd,early satiety,upper abdominal pain Post-op diagnosis: other (Gastritis) Procedure: FLEXIBLE TRANSORAL UPPER GASTROINTESTINAL ENDOSCOPY WITH BIOPSIES Surgeon: Colleen Branham MD Anesthesia: MAC Was an Foreign Broadcast Specialist used for this Procedure?: Yes Foreign Broadcast Specialist: Margy Carroll Estimated blood loss (mL): 0 Pathology: other ( A: small bowel to rule out celiac disease B: doudenial bowel C: gastric antrum) Condition: stable Disposition: PACU
--- NOTE | 2022-04-23 15:01 | W.PM.OPN ---
Operative Note Operative Note Date of Service: 04/23/22 Narrative: Pre-op diagnosis: duodenitis,gerd,early satiety,upper abdominal pain Post-op diagnosis:?other (Gastritis) Surgeon: Colleen Branham MD Anesthesia:?MAC FLEXIBLE TRANSORAL UPPER GASTROINTESTINAL ENDOSCOPY WITH BIOPSIES Consent: Indications for the procedure and potential complications of bleeding, perforation, reaction to medications and missed diagnosis were discussed with the patient and informed consent was obtained. Instrument: Olympus GIF H 190 mid size upper endoscope Monitoring: Vital signs and clinical assessment, continuous EKG monitoring, Pulse oximetry, Carbon Dioxide monitoring and blood pressure monitoring were done throughout the procedure. Procedure: The patient was placed in the left lateral decubitis position and pre-procedure medications were administered and a bite block was placed. The endoscope was inserted into the mouth and advanced under direct vision to the third part of duodenum. A careful inspection was made as the upper endoscope was withdrawn including a retroflexed examination of the proximal stomach; Findings and interventions are described below. Findings: Larynx: Normal Esophagus: GE junction at 40 cms. No esophagitis or Kapoor's. Stomach: Mild gastric erythema with a few 1-2 mm chronic appearing pre-pyloric erosions. Biopsies were obtained to check for H pylori. Grade 2 flap valve on retroflexed examination of the cardia. Duodenum: Nodular appearing mucosa in the proximal bulb - biopsied. Ulcers noted in the apex of the bulb on past EGD have healed.? Normal descending duodenum.? Biopsies were obtained from 3rd part of the duodenum to check for celiac sprue. Intervention: Biopsies as noted above Impression and Post Procedure Diagnosis: Endoscopy Findings: STOMACH: Mild gastric erythema with a few 1-2 mm chronic appearing pre-pyloric erosions. Biopsies were obtained to check for H pylori. DUODENUM: Nodular appearing mucosa in the proximal bulb - biopsied. Ulcers noted in the apex of the bulb on past EGD have healed.? Normal descending duodenum.? Biopsies were obtained from 3rd part of the duodenum to check for celiac sprue. Plan: Await pathology results Patient has an appointment on 05/23/22 in the GI Clinic with Colleen Branham M.D.. Above findings were reviewed with the patient and Gastritis handout was given in the discharge area
[2022-04-23 15:45] VITALS: BP 117/67; PULSE 105; RESP 20; TEMP 36.6; O2SAT 99
[2022-04-23 16:00] VITALS: BP 109/65; PULSE 79; RESP 18; TEMP 36.8; O2SAT 99
== END 2022-04-23 16:20 | disposition home or self-care (01) ==
PROVIDERS: PCP Internal Medicine; Visit Provider Internal Medicine Gastroenterology
PROC: 0DJ08ZZ Inspection of Upper Intestinal Tract, Via Natural or Artificial Opening Endoscopic (ICD-10-PCS; CPT 43235; principal; 2022-04-23 14:30)
DX: K29.50 Unspecified chronic gastritis without bleeding (principal); K29.81 Duodenitis with bleeding; K21.9 Gastro-esophageal reflux disease without esophagitis; K25.9 Gastric ulcer, unspecified as acute or chronic, without hemorrhage or perforation; R68.81 Early satiety; Z88.8 Allergy status to other drugs, medicaments and biological substances
CPT/HCPCS: 43239; 88305; 88342

== ENCOUNTER 2022-05-01 11:29 | Outpatient (REF) | payer BC, SELFPAY | END 2022-05-01 11:30 | disposition home or self-care (01) | LOC: HO.CT 11:29 | PROVIDERS: PCP Internal Medicine; Visit Provider Internal Medicine Gastroenterology | DX: Z13.89 Encounter for screening for other disorder (principal) ==

== ENCOUNTER 2022-05-01 12:13 | Emergency (ER) | payer BC, SELFPAY ==
[2022-05-01 12:15] VITALS: BP 136/78; PULSE 113; RESP 20; TEMP 36.6; O2SAT 100; BMI 25.8
--- NOTE | 2022-05-01 12:18 | PC.NURSE ---
37 y/o M outpatient response, was at radiology for CTAP, s/p oral contrast patient had SOB/palps. denies any other sx. pt has known allergy to shellfish. pt is aox3, VSS at this time, speaking in full clear sentences.
--- NOTE | 2022-05-01 12:47 | ED_ITS ---
HPI - Allergic Reaction General Chief complaint: Dyspnea Stated complaint: ? Reaction to Contrast Time Seen by Provider: 05/01/22 12:37 Source: patient Mode of arrival: ambulatory History of Present Illness HPI narrative: 37-year-old male who was scheduled for a CT of the abdomen pelvis as an outpatient by Gastroenterology states that he took the Benadryl and prednisone this morning and began having a racing heart/palpitations and then when he began drinking the oral contrast he developed even further racing heart with shortness of breath and denied any facial edema or hives. The radiology department immediately activated a rapid response and patient was seen here in the emergency room. Related Data Previous Rx's Medication Instructions Recorded diphenhydramine HCl 25 mg capsule 50 mg PO ONCE PRN sleep 1 day #2 04/25/22 (Benadryl) caps prednisone 50 mg tablet 50 mg PO DAILY 1 day #1 tab 04/25/22 Allergies Allergy/AdvReac Type Severity Reaction Status Date / Time hydroxyzine Allergy Intermediate Palpitation Verified 04/19/22 09:02 s omeprazole Allergy Itching Verified 04/23/22 15:10 famotidine AdvReac Itching Verified 04/19/22 09:02 shellfish derived AdvReac Itching Verified 04/19/22 09:02 Review of Systems Review of Systems: Pertinent positives and negatives as stated in HPI. PMFSH Past Medical History Source: nursing notes reviewed Medical History Anxiety BPPV (benign paroxysmal positional vertigo) Chronic GERD Hypercalcemia Peptic ulcer disease Tinnitus, left ear Surgical History Hx of esophagogastroduodenoscopy No pertinent past surgical history Family History Family History Mother No problems noted. Father No problems noted. Sister Leukemia Social History Social History Housing: Apartment Alcohol intake: never Patient Tobacco Use Status: Never used Tobacco e-Cigarette/Vaping Use: Never Used Second Hand Smoke Exposure: No Advance Directives: No Advance Directives Information Provided: Yes service: No Current occupational status: employed Cognitive needs: No Hearing needs: No Vision needs: Yes Physical Exam ED Vital Signs: Vital Signs - 24 hr 05/01/22 12:15 Temperature 98 F Pulse Rate 113 H Respiratory Rate 20 Blood Pressure 136/78 Pulse Oximetry 100 Oxygen Delivery Method Room Air BMI result Body Mass Index 25.8 VITAL SIGNS: Reviewed. GENERAL: Well developed, well nourished, in no acute distress. HEAD: Normocephalic/atraumatic EYES: PERRLA, EOMI EARS: Ext canals without abnormality OROPHARYNX: no oral lesions noted, posterior pharynx clear, no facial/lip/tongue swelling NECK: Supple, no adenopathy LUNGS: Normal breath sounds, no stridor/wheeze/rhonchi. No adventitious sounds or accessory muscle use. SpO2<100> CARDIOVASCULAR: Regular rate and rhythm without noted murmurs ABDOMEN: Soft, non-tender, non-distended with bowel sounds. MUSCULOSKELETAL: No tenderness, deformities, or effusions noted on gross inspection. EXTREMITIES: No cyanosis, clubbing or edema. SKIN: Inspection of the skin reveals no rashes NEUROLOGIC: Alert and oriented x 4. Strength and sensation to light touch were grossly intact x 4. Medical Decision Making Medical Decision Making MDM Narrative: This is a 37-year-old male with history and clinical presentation consistent with shellfish allergy and he received Benadryl and prednisone, reaction is likely secondary to the prednisone as it occurred prior to initiation of oral contrast. There is no evidence of anaphylaxis/hives/angioedema. Patient remains hemodynamically stable and I discussed this case extensively with Dr. Desouza who will communicate with Dr. Marcum (the patient's primary automation and controls supervisor) and patient will be scheduled for an outpatient liver ultrasound. All of the results, the plans and the findings were discussed with the patient at bedside. Differential Diagnosis Differential Diagnoses: The differential diagnosis associated with the presentation includes Please see the discussion above Consult Healthcare Provider Management of the patient was discussed with: Lathe Mechanic Dr [email or web address]: Recommends possible outpatient abdominal ultrasound. Will discussed with patient at bedside, he is otherwise hemodynamically stable he was also instructed to not take any further Benadryl or prednisone. External Record Review External record reviewed: Outpatient record and Prior outpatient labs Critical Care Time Critical Care Time Critical Care Time: Yes Total Critical Care Time: 30 Attestation: I personally attest to this time spent taking care of the patient. Discharge Plan Discharge Clinical Impression: Medication side effect Patient Disposition: Home, Self-Care Additional Instructions: 1. Recommend that you stop taking any and all Benadryl/prednisone for the rest of the day as this is not needed. 2. If for some reason you do develop any facial swelling/tongue or lip swelling or difficulty breathing please do not hesitate to return to the emergency room. You may continue to have an elevated heart rate as well as blood pressure secondary to prednisone side effects. Your automation and controls supervisor will get you rescheduled for imaging studies. Prescriptions: No Action prednisone 50 mg tablet 50 mg PO DAILY 1 Days Qty: 1 0RF Rx Instructions: Take 1 tablet 13 [address] to Abd [address] scan Take 1 tablet 7 [address] to [address] scan Take 1 tablet [address] scan diphenhydramine HCl [Benadryl] 25 mg capsule 50 mg PO ONCE PRN (Reason: sleep) 1 Days Qty: 2 0RF Rx Instructions: Take 2 tablets PO 1 hour before getting IV contrast Referrals: Colleen Branham MD [Physician] -
--- NOTE | 2022-05-01 12:50 | MHC.EDTECH ---
@[id number] I reached out to Dr. Mcfarlane via [place] text per request of Dr. Crisostomo. I gave him the extension to reach the ER and the patients room number.
== END 2022-05-01 14:06 | disposition home or self-care (01) ==
PROVIDERS: Emergency Provider Student in an Organized Health Care Education/Training Program
DX: R06.02 Shortness of breath (principal)
CPT/HCPCS: 99282; 99283

== ENCOUNTER 2022-05-10 09:57 | Outpatient (REF) | payer BC, SELFPAY ==
--- NOTE | ~2022-05-10 | US_ITS ---
EXAMINATION: US ABDOMEN COMPLETE CLINICAL INFORMATION: Elevated LFTs, upper abdominal pain. COMPARISON: None TECHNIQUE: Real-time imaging of the abdominal viscera. FINDINGS: PANCREAS: The pancreas is normal size. It appears mildly hyperechoic. No focal lesion seen.. ABDOMINAL AORTA: The proximal, mid, and distal segments are normal in caliber. INFERIOR VENA CAVA: Visualized portions are normal. LIVER: The liver is normal in size. The liver contour is normal. Parenchymal echogenicity is increased. No focal hepatic lesion. There is no intrahepatic biliary duct dilatation seen. GALLBLADDER: Normal. The gallbladder is physiologically distended without evidence of stones, sludge, polyps, wall thickening or pericholecystic fluid. COMMON BILE DUCT: Normal in caliber measuring 0.5 cm in diameter. RIGHT KIDNEY: Normal. No hydronephrosis. No renal calculi or focal parenchymal lesions. The kidney measures 10.8 cm in maximum dimension. LEFT KIDNEY: Normal. No hydronephrosis. No renal calculi or focal parenchymal lesions. The kidney measures 10.8 cm in maximum dimension. SPLEEN: Normal. The spleen measures 10.8 cm in maximum dimension. FREE FLUID: None. US/US abdomen complete IMPRESSION: 1. Diffusely echogenic liver without focal lesion. 2. Mild hyperechoic pancreas. 3. The rest of the abdominal ultrasound is unremarkable.
[2022-05-10 12:57] LABS: INTERNATIONAL NORM RATIO 1.1 (0.9-1.1); Prothrombin Time 12.5 SEC (10.0-13.1)
[2022-05-10 13:18] LABS: Alanine Aminotransferase 90 U/L (0-40); Albumin Level 4.7 g/dL (3.5-5.0); Alkaline Phosphatase 52 U/L (39-117); Aspartate Amino Transferase 41 U/L (5-37); Bilirubin Direct 0.3 mg/dL (0.0-0.5); Blood Urea Nitrogen 17 mg/dL (9-16); Estimated Glomerular Filt Rate > 60; Total Protein 8.2 g/dL (6.5-8.0)
[2022-05-13 04:35] LABS: HBc Num1 0.09 S/CO (0.00-0.79); HBsAGNum1 0.31 S/CO (0.00-0.99); Hepatitis A Antibody IgM 0.25 Index (0-0.79); Hepatitis B Core Antibody Nonreactive (Nonreactive); Hepatitis B Surface Antigen Negative (Negative); ~HepC Num1 0.12 S/CO (0.00-0.79); ~Hepatitis A Antibody IgM Nonreactive (Nonreactive); ~Hepatitis B Surface Antibody NONREACTIVE (Nonreactive); ~Hepatitis C Antibody Nonreactive (Nonreactive)
[2022-05-13 16:23] LABS: Alpha 1 Anti-trypsin 147 mg/dL (83-199); Ceruloplasmin 23 mg/dL (18-36)
[2022-05-14 15:48] LABS: Anti Nuclear Antibody Screen NEGATIVE (NEGATIVE)
== END 2022-05-10 09:58 | disposition home or self-care (01) ==
LOC: HO.HMGCX 09:57
PROVIDERS: PCP Internal Medicine; Visit Provider Internal Medicine Gastroenterology
DX: R10.10 Upper abdominal pain, unspecified (principal); R79.89 Other specified abnormal findings of blood chemistry; R63.4 Abnormal weight loss
CPT/HCPCS: 36415; 76700; 80076; 82103; 82390; 82565; 84520; 85610; 86038; 86039; 86704; 86706; 86708; 86709; 86803; 87340

== ENCOUNTER → 2022-05-23 13:13 | Outpatient (BNVA) | payer BC, SELFPAY | PROVIDERS: PCP Internal Medicine; Visit Provider Internal Medicine Gastroenterology | DX: Z13.89 Encounter for screening for other disorder (principal) ==

== ENCOUNTER → 2022-06-07 10:00 | Outpatient (BNVA) | payer BC, SELFPAY | PROVIDERS: PCP Internal Medicine; Visit Provider Urology | DX: Z13.89 Encounter for screening for other disorder (principal) ==

== ENCOUNTER 2022-07-02 06:02 | Day surgery (SDC) | payer BC, SELFPAY ==
--- NOTE | 2022-06-24 10:31 | HO.ANESPROP2 ---
HPI - Anesthesia Eval Consult details Narrative: 37yo M for Cystoscopy with possible stricture dilation s/p EGD 03/2022 with MAC PMFSH Active Problems Active Problems: All Active Problems (Updated 06/07/22 @ 10:54 by Deny Curtis MD) Sensation of pressure in bladder area (Acute) Pain with urination (Acute) Urine stream spraying (Acute) Prostatitis (Acute) Weight loss (Acute) Elevated LFTs (Acute) Asthma (Acute) Early satiety (Acute) Upper abdominal pain (Acute) Multiple duodenal ulcers (Acute) Burning with urination (Acute) Generalized anxiety disorder (Acute) Lightheadedness (Acute) Palpitations (Acute) Hospital discharge follow-up (Acute) Physical exam (Acute) Hypercalcemia (Acute) Tinnitus, left ear (Acute) BPPV (benign paroxysmal positional vertigo) (Acute) Peptic ulcer disease (Acute) Chronic GERD (Acute) Past Medical History Medical History Anxiety BPPV (benign paroxysmal positional vertigo) Chronic GERD Hypercalcemia Peptic ulcer disease Tinnitus, left ear Family History Family History Mother No problems noted. Father No problems noted. Sister Leukemia Family history of problems with anesthesia: No Surgical History Surgical History Hx of endoscopy Hx of esophagogastroduodenoscopy No pertinent past surgical history History of Problems with Anesthesia: No Social History Social History Housing: Apartment Alcohol intake: never Patient Tobacco Use Status: Never used Tobacco e-Cigarette/Vaping Use: Never Used Second Hand Smoke Exposure: No service: No Current occupational status: employed Cognitive needs: No Hearing needs: No Vision needs: Yes Meds Allergies Allergy/AdvReac Type Severity Reaction Status Date / Time hydroxyzine Allergy Intermediate Palpitation Verified 06/26/22 10:12 s omeprazole Allergy Itching Verified 06/26/22 10:12 famotidine AdvReac Itching Verified 06/26/22 10:12 shellfish derived AdvReac Itching Verified 06/26/22 10:12 Home Medications Medication Instructions Recorded Confirmed Last Taken Type omeprazole 10 mg capsule,delayed 10 mg PO DAILY 06/26/22 06/26/22 Unknown History release Exam Exam Date and Time: June 24, 2022 1031 Pertinent Lab Results Pertinent Lab Results: Laboratory Tests 04/20/22 04/20/22 05/10/22 08:41 08:41 11:34 WBC 5.6 Hgb 16.2 Hct 47.8 Plt Count 219 Sodium 141 Potassium 4.5 Chloride 104 Carbon Dioxide 29 BUN 17 H Creatinine 1.07 Narrative Narrative: EKG 12/2021 Vent. Rate : 072 BPM ? ? Atrial Rate : 072 BPM ?? P-R Int : 176 ms? QRS Dur : 092 ms ? ? QT Int : 380 ms ? ? ? P-R-T Axes : 077 081 066 degrees ?? QTc Int : 416 ms ? Normal sinus rhythm Normal ECG When compared with ECG of 29-AUG-2021 01:34, No significant change was found Assessment and Plan Assessment Anesthesia Assessment: Chart Reviewed Final Anesthetic Review Family History of Problems with Anesthesia: No History of Problems with Anesthesia: No
[2022-07-02] VITALS (7 sets, daily range): BP systolic 96–148; BP diastolic 59–87; PULSE 60–83; RESP 16–18; TEMP 36.4–36.6; O2SAT 98–100; BMI 22.0
[2022-07-02] MEDS: Lactated Ringers 1,000 ML 100 ML IVCONT (06:35)
--- NOTE | 2022-07-02 07:38 | MHC.SHP ---
Pre-Procedural Eval Section A Date of Service: 07/02/22 The patient is an INPATIENT: No The History & Physical has been completed within 30 days and I have reviewed it.: Yes Section B Chief Complaint: Painful micturition, unspecified Allergies: Allergies Allergy/AdvReac Type Severity Reaction Status Date / Time hydroxyzine Allergy Intermediate Palpitation Verified 06/26/22 10:12 s omeprazole Allergy Itching Verified 06/26/22 10:12 famotidine AdvReac Itching Verified 06/26/22 10:12 shellfish derived AdvReac Itching Verified 06/26/22 10:12 Plan I have reviewed the history and physical and performed a pertinent physical examination on my patient. No changes have occurred unless specified. Discussed risks to include but not limited to, blood in the urine, burning with urination, urgency. Possible insertion of boss catheter Time Spent With Patient Time: Total time managing care of this patient today ____ minutes.
--- NOTE | 2022-07-02 07:55 | P.CONAN_ITS ---
[facility] Active Problems Active Problems: All Active Problems (Updated 06/07/22 @ 10:54 by Deny Curtis MD) Sensation of pressure in bladder area (Acute) Pain with urination (Acute) Urine stream spraying (Acute) Prostatitis (Acute) Weight loss (Acute) Elevated LFTs (Acute) Asthma (Acute) Early satiety (Acute) Upper abdominal pain (Acute) Multiple duodenal ulcers (Acute) Burning with urination (Acute) Generalized anxiety disorder (Acute) Lightheadedness (Acute) Palpitations (Acute) Hospital discharge follow-up (Acute) Physical exam (Acute) Hypercalcemia (Acute) Tinnitus, left ear (Acute) BPPV (benign paroxysmal positional vertigo) (Acute) Peptic ulcer disease (Acute) Chronic GERD (Acute) Past Medical History Medical History Anxiety BPPV (benign paroxysmal positional vertigo) Chronic GERD Hypercalcemia Peptic ulcer disease Tinnitus, left ear Family History Family History Mother No problems noted. Father No problems noted. Sister Leukemia Family history of problems with anesthesia: No Surgical History Surgical History Hx of endoscopy Hx of esophagogastroduodenoscopy No pertinent past surgical history History of Problems with Anesthesia: No Social History Social History Housing: Apartment Alcohol intake: never Patient Tobacco Use Status: Never used Tobacco e-Cigarette/Vaping Use: Never Used Second Hand Smoke Exposure: No Use of substances other than those prescribed or required for medical reasons: No Are you DNR?: No Advance Directives: No Advance Directives Information Provided: Yes service: No Current occupational status: employed Cognitive needs: No Hearing needs: No Vision needs: Yes Meds Allergies Allergy/AdvReac Type Severity Reaction Status Date / Time hydroxyzine Allergy Intermediate Palpitation Verified 06/26/22 10:12 s omeprazole Allergy Itching Verified 06/26/22 10:12 famotidine AdvReac Itching Verified 06/26/22 10:12 shellfish derived AdvReac Itching Verified 06/26/22 10:12 Active Medications: Current Medications Albuterol Sulfate (Albuterol Sulfate (0.083%) 2.5 Mg/3 Ml Vial.Neb) 2.5 mg INHALE ONCE PRN PRN Reason: Shortness of Breath/Wheezing Lactated Ringer's (Lr) 1,000 mls @ 100 mls/hr IVCONT .Q10H ANTONIO Last Admin: 07/02/22 06:35 Dose: 100 mls/hr Home Medications Medication Instructions Recorded Confirmed Last Taken Type omeprazole 10 mg capsule,delayed 10 mg PO DAILY 06/26/22 06/26/22 Unknown History release Exam Exam Date and Time: July 02, 2022 0755 Height,Weight and Vital Signs: Height 5 ft 11 in Weight 71.668 kg Last Vital Signs Temp 97.9 F 07/02/22 06:16 Pulse 78 07/02/22 06:16 Resp 18 07/02/22 06:16 BP 148/87 H 07/02/22 06:16 Pulse Ox 99 07/02/22 06:16 O2 Del Method Room Air 07/02/22 06:16 Airway Mallampati Class: II TM Dist: >3cm Denture: Upper Heart: RRR Lungs: CTA Assessment and Plan Final Anesthetic Review Family History of Problems with Anesthesia: No History of Problems with Anesthesia: No ASA Class: II Final Preanesthetic Review: Meds/Allgs Chart Reviewed, Consent Obtained/Reviewed and Anes Risks/Benef Reviewed Patient Risk: Low Anesthetic Plan Anesthetic Plan: GA Disposition: Standard PACU
--- NOTE | 2022-07-02 08:02 | W.PM.OPN ---
Operative Note Operative Note Date of Service: 07/02/22 Narrative: PREOP DIAGNOSIS: Painful micturition, spraying of urinary stream POSTOP DIAGNOSIS: Painful micturition, spraying of urinary stream PROCEDURE: CYSTOSCOPY SURGEON: Deny Curtis MD ANESTHESIA: General Indications: Mauri is a 37-year-old male who has had irritative voiding symptoms. Prostatic fluid was evaluated and sent for culture which was positive and he was treated with antibiotics. He is had significant improvement urinary symptoms and is here to complete evaluation of urinary tract Details of procedure: The patient was brought into the operating room placed on the OR table in supine position. 2 g of Ancef IV. General anesthesia was administered. The patient was repositioned into lithotomy position, prepped and draped in the usual sterile fashion. Time-out was done per protocol. A 22 fr cystoscope was placed transurethrally into the bladder. The bulbous urethra was within normal limits, The prostatic urethra was nonobstructive. The right and left ureteral orifices were visualized. The entire bladder was visualized. There were no suspicious bladder lesions seen. The cystoscope was removed. 2% lidocaine urojet was passed transurethrally into the bladder. The patient was brought out of anesthesia and taken to recovery in stable condition. Complications: None Drains: none
--- NOTE | 2022-07-02 08:11 | HO.POSTANES ---
Post Anesthesia Evaluation Post Anesthesia Evaluation Vital Signs: Vital Signs Temp Pulse Resp BP Pulse Ox O2 Del Method 07/02/22 06:16 97.9 F 78 18 148/87 H 99 Room Air Anesthesia: General LMA Mental Status: Awake Pain Control: Satisfactory Nausea/Vomiting: None Hydration: Adequate Anesthesia-Related Issues: No Anes. Related Issues
[2022-07-02] MEDS: Ketorolac Tromethamine 30 MG/ML VIAL 15 MG IVPUSH (08:24)
[2022-07-02] MEDS: Phenazopyridine HCL 100 MG TABLET 200 MG PO (08:31)
--- NOTE | 2022-07-02 14:18 | HO.POSTANES ---
Post Anesthesia Evaluation Post Anesthesia Evaluation Vital Signs: Vital Signs Temp Pulse Resp BP Pulse Ox O2 Del Method 07/02/22 08:45 97.6 F 80 16 110/71 100 Room Air 07/02/22 08:32 71 16 107/63 100 Room Air 07/02/22 08:17 74 16 96/62 100 Room Air 07/02/22 08:12 79 16 106/61 99 Room Air 07/02/22 08:07 83 16 98/59 L 98 Room Air 07/02/22 08:02 97.6 F 60 16 106/62 98 Room Air 07/02/22 06:16 97.9 F 78 18 148/87 H 99 Room Air Anesthesia: General Mental Status: Awake Pain Control: Satisfactory Nausea/Vomiting: None Hydration: Adequate Anesthesia-Related Issues: No Anes. Related Issues
== END 2022-07-02 09:32 | disposition home or self-care (01) ==
PROVIDERS: PCP Internal Medicine; Visit Provider Urology
PROC: 0TJB8ZZ Inspection of Bladder, Via Natural or Artificial Opening Endoscopic (ICD-10-PCS; CPT 52000; principal; 2022-07-02 07:30)
DX: R30.9 Painful micturition, unspecified (principal); R39.13 Splitting of urinary stream; R86.8 Other abnormal findings in specimens from male genital organs; K21.9 Gastro-esophageal reflux disease without esophagitis; K27.9 Peptic ulcer, site unspecified, unspecified as acute or chronic, without hemorrhage or perforation; E83.52 Hypercalcemia; H81.10 Benign paroxysmal vertigo, unspecified ear; F41.1 Generalized anxiety disorder; Z79.899 Other long term (current) drug therapy; Z88.8 Allergy status to other drugs, medicaments and biological substances
CPT/HCPCS: 52000; J0690; J1100; J1885; J2250; J2405; J3010

== ENCOUNTER → 2022-07-18 08:42 | Outpatient (BNVA) | payer BC, SELFPAY | PROVIDERS: PCP Internal Medicine; Visit Provider Urology | DX: Z13.89 Encounter for screening for other disorder (principal) ==

== ENCOUNTER → 2022-08-22 11:04 | Outpatient (BNVA) | payer BC, SELFPAY | PROVIDERS: PCP Internal Medicine; Visit Provider Internal Medicine Gastroenterology ==

== ENCOUNTER 2022-10-09 09:41 | Outpatient (REF) | payer BC, SELFPAY ==
[2022-10-09 11:33] LABS: Alanine Aminotransferase 59 U/L (0-40); Albumin Level 4.9 g/dL (3.5-5.0); Alkaline Phosphatase 48 U/L (39-117); Aspartate Amino Transferase 34 U/L (5-37); Bilirubin Direct 0.2 mg/dL (0.0-0.5); Bilirubin Total 0.9 mg/dL (0.0-1.0); Total Protein 8.4 g/dL (6.5-8.0)
[2022-10-09 11:47] LABS: HBsAGNum1 0.29 S/CO (0.00-0.99); Hepatitis B Core Antibody Nonreactive (Nonreactive); Hepatitis B Surface Antigen Negative (Negative); ~Hepatitis B Surface Antibody NONREACTIVE (Nonreactive); ~Hepatitis C Antibody Nonreactive (Nonreactive)
[2022-10-09 11:49] LABS: Hepatitis A Antibody IgG Nonreactive (Nonreactive); Hepatitis A Antibody IgM 0.27 Index (0-0.79); ~Hepatitis A Antibody IgG 0.34 S/CO (0.00-0.99); ~Hepatitis A Antibody IgM Nonreactive (Nonreactive)
== END 2022-10-09 09:42 | disposition home or self-care (01) ==
LOC: HO.LAB 09:41
PROVIDERS: PCP Internal Medicine; Visit Provider Internal Medicine Gastroenterology
DX: R63.4 Abnormal weight loss (principal); R79.89 Other specified abnormal findings of blood chemistry
CPT/HCPCS: 36415; 80076; 84443; 86704; 86706; 86708; 86709; 86803; 87340

== ENCOUNTER 2023-01-13 14:13 | Outpatient (AMB) | payer BC, SELFPAY ==
[2023-01-13 14:26] VITALS: BP 136/80; PULSE 65; O2SAT 99; BMI 24.8
--- NOTE | 2023-01-13 14:26 | MHC.PC.OV ---
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 Required: No Accompanied by: Self / Same As Patient Allergies hydroxyzine Allergy (Intermediate, Verified 01/13/23 14:39) Palpitations omeprazole Allergy (Verified 01/13/23 14:39) Itching famotidine Adverse Reaction (Verified 01/13/23 14:39) Itching shellfish derived Adverse Reaction (Verified 01/13/23 14:39) Itching Medication List - Last Reconciled 01/13/23 by Aminata Scott MD No Known Home Meds Tobacco use date assessed: 01/13/23 Dental Screening Dental Screen Date: 01/13/23 Did you have a dental visit in the last 12 months?: No Did you have a dental problem in the last 6 months where you did not have access to dental care?: No Was dental information given to patient?: Patient has dentist HPI HPI Comments History of Present Illness Details This is a 37-year-old male that comes for his physical exam. No chest pain or shortness of breath. PFSH Medical History Anxiety Hypercalcemia Tinnitus, left ear BPPV (benign paroxysmal positional vertigo) Peptic ulcer disease Chronic GERD Surgical History Hx of endoscopy Hx of esophagogastroduodenoscopy No pertinent past surgical history Family History Mother No problems noted. Father No problems noted. Sister Leukemia Social History Housing: Apartment Alcohol intake: never Patient Tobacco Use Status: Never used Tobacco e-Cigarette/Vaping Use: Never Used Second Hand Smoke Exposure: No service: No Current occupational status: employed Current occupational exposures/hazards: No Cognitive needs: No Hearing needs: No Vision needs: Yes Questionnaire PHQ-9 Over the last 2 weeks, how often have you been bothered by any of the following problems? 1. Little interest or pleasure in doing things: not at all 2. Feeling down, depressed, or hopeless: not at all 3. Trouble falling or staying asleep, or sleeping too much: not at all 4. Feeling tired or having little energy: not at all 5. Poor appetite or overeating: not at all 6. Feeling bad about yourself - or that you are a failure or have let yourself or your family down: not at all 7. Trouble concentrating on things, such as reading the newspaper or watching television: not at all 8. Moving or speaking so slowly that other people could have noticed. Or the opposite - being so fidgety or restless that you have been moving around a lot more than usual: not at all 9. Thoughts that you would be better off or of hurting yourself in some way: not at all Total score: 0 Depression Screening Interpretation: Negative Depression Screening Done: Yes 14705 - PHQ-9 Billing: Yes Source: Developed by Drs. Dirk Woodard, Cherise Beasley, Joshua Colindres and colleagues, with an educational mario from [employer]. Thrive Questionnaire Date Thrive assessed: 01/13/23 I am a: Patient What is your living situation today?: I have a steady place to live Within the past 12 months, did the food you bought not last and you didn't have the money to get more?: Never true Within the past 12 months, did you worry whether your food would run out before you got money to buy more?: Never true Do you have trouble paying for medicines?: No Do you have trouble getting transportation to medical appointments?: No Do you have trouble paying your heating and electricity bill?: No Do you have trouble taking care of your child, family member or friend?: No Do you have trouble with day-to-day activities such as bathing, preparing meals, shopping, managing finances, etc.?: No Are you currently unemployed and looking for a job?: No Are you interested in more education?: No Please select the resources that you would like help with: None Currently or been in a relationship where the following occur: no concerns reported AUDIT C Alcohol Use Questionnaire (AUDIT-C) 1. How often do you have a drink containing alcohol?: Never Total Score: 0 CARMELO-7 AMB Questionnaire CARMELO-7 Date CARMELO - 7 assessed: 01/13/23 Feeling nervous, anxious, or on edge: 0 = Not at all Not being able to stop or control worryin = Not at all Worrying too much about different things: 0 = Not at all Trouble relaxin = Not at all Being so restless that it is hard to sit still: 0 = Not at all Becoming easily annoyed or irritable: 0 = Not at all Feeling afraid as if something awful might happen: 0 = Not at all Total CARMELO-7 score (0-4 normal; 5-9 mild; 10-14 moderate; 15-21 severe): 0 Source: Developed by Drs. Dirk Woodard, Cherise Beasley, Joshua Colindres and colleagues, with an educational mario from [employer]. CARMELO-7 Assessment Billing CARMELO-7 Assessment Tool: CARMELO-7 Assessment 39024 Review of Systems Const All systems reviewed & are unremarkable except as noted in HPI and below Eyes Reports no additional complaints, Denies change in vision and Denies other visual disturbances Card Denies chest pain at rest, Denies chest pain with activity, Denies edema, Denies irregular heart rhythm, Denies claudication, Denies dyspnea, Denies dyspnea on exertion, Denies orthopnea, Denies paroxysmal nocturnal dyspnea and Denies slow heart rate Resp Denies cough, Denies dyspnea and Denies dyspnea on exertion GI Denies abdominal pain, Denies change in bowel habits, Denies excessive flatus, Denies nausea and Denies vomiting Denies urinary hesitancy, Denies urinary incontinence and Denies urinary urgency Musc Denies abnormal gait, Denies atrophy, Denies deformity and Denies limited range of motion Skin/Breast Denies bleeding lesions, Denies changing lesions and Denies rash Neuro Denies abnormal gait and Denies lack of coordination Physical exam (Primary Care) Vital Signs: Last Vital Signs Pulse 65 01/13/23 14:26 BP 136/80 01/13/23 14:26 Pulse Ox 99 01/13/23 14:26 Oxygen Delivery Method Room Air 01/13/23 14:26 BMI result Body Mass Index 24.8 Tobacco/Smoking Status: Tobacco use Status Tobacco use date assessed 01/13/23 01/13/23 14:31 Patient Tobacco Use Status Never used Tobacco 01/13/23 14:31 e-Cigarette/Vaping Use Never Used 01/13/23 14:31 PHQ-9: PHQ-9 Score PHQ-9: Total score 0 01/13/23 14:42 Depression Screening Interpretation: Negative Thrive Assessment: Date of Thrive Assessment Date Thrive assessed 01/13/23 01/13/23 14:31 Currently or been in a relationship where the following occur: no concerns reported Const Orientation/consciousness: patient oriented x3 HENMT Head: Yes normal to inspection, Yes normocephalic and Yes atraumatic Ears: external ears normal Eyes General: appearance normal, both eyes and all related structures Eyelids: Yes eyelids normal Conjunctivae: conjunctivae normal Neck Neck: Yes normal visual inspection and Yes supple Resp Effort & Inspection: normal respiratory effort Auscultation: clear to auscultation bilaterally Cardio Jugular venous distension: no JVD Rate: regular rate Rhythm: regular rhythm Heart sounds: S1 normal heart sound present and S2 normal heart sound present GI Inspection: Yes normal to inspection Palpation (GI): Soft to palpation and nontender Auscultation: normal bowel sounds Skin General skin exam: no rashes or lesions noted Neuro General: patient oriented x3 and no focal motor deficits Extrem General: Yes full ROM Psych Appearance: grossly normal Assessment and Plan Assessment & Plan (1) Physical exam: Code(s): Z00.00 - Encounter for general adult medical examination without abnormal findings Plan: Repeat in a year. Orders: Orders Lipid Panel Today Z00.00 - Encounter for general adult medical examination without abnormal findings Comprehensive [place]. Panel Fast Today Z00.00 - Encounter for general adult medical examination without abnormal findings Coding Level of Care Code Est Pt Prev Care 18-39y(49943) Diagnoses Physical exam Z00.00 Additional Codes CARMELO-7 Assessment Billing - CARMELO-7 Assessment Tool: CARMELO-7 Assessment 31977 ([id number]) Time Spent (min) 33
== END 2023-01-13 14:47 | disposition home or self-care (01) ==
PROVIDERS: Visit Provider Internal Medicine
DX: Z00.00 Encounter for general adult medical examination without abnormal findings (principal)
CPT/HCPCS: 99395

== ENCOUNTER 2023-01-16 11:30 | Outpatient (REF) | payer BC, SELFPAY ==
[2023-01-16 14:04] LABS: Alanine Aminotransferase 79 U/L (0-40); Albumin Level 4.8 g/dL (3.5-5.0); Alkaline Phosphatase 47 U/L (39-117); Anion Gap 15 (12-20); Aspartate Amino Transferase 43 U/L (5-37); Bilirubin Total 0.9 mg/dL (0.0-1.0); Blood Urea Nitrogen 21 mg/dL (9-16); Calcium 10.3 mg/dL (8.4-10.2); Carbon Dioxide 25 mmol/L (22-29); Chloride 103 mmol/L (96-108); Cholesterol 199 mg/dL (<200); Estimated Glomerular Filt Rate > 60; Glucose Fasting 95 mg/dL (60-99); HDL Cholesterol 58 mg/dL (>40); LDL Cholesterol Calculated 128 mg/dL (<100); Potassium 4.4 mmol/L (3.3-5.1); Sodium 139 mmol/L (135-145); Total Protein 8.8 g/dL (6.5-8.0); Triglycerides 66 mg/dL (<150)
== END 2023-01-16 11:31 | disposition home or self-care (01) ==
LOC: HO.LAB 11:30
PROVIDERS: PCP Internal Medicine; Visit Provider Internal Medicine
DX: Z00.00 Encounter for general adult medical examination without abnormal findings (principal)
CPT/HCPCS: 36415; 80053; 80061

== ENCOUNTER 2023-01-22 08:10 | Outpatient (AMB) | payer BC, SELFPAY ==
--- NOTE | 2023-01-22 08:12 | A.OFFVIS_ITS ---
Intake Intake Visit Reasons: Follow up on treatment for prostatitis. 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 01/22/2023? The patient has a past medical history significant for anxiety, chronic GERD, hypercalcemia, and peptic ulcer disease. He was last seen by me on 07/18/2022 for history of prostatitis. The patient was advised to follow-up PRN during that time.? On prior evaluation he had a prostatic massage and fluid was sent for [facility] testing which resulted positive for klebsiella bacteria and sensitive to quinolones. He was treated with a 10 day course of Levaquin. He states that the symptoms are coming back. Patient noted burning with urination. In review of MicroGen testing,the bacteria was also sensitive to Augmentin. 01/22/2023: Evaluation today?UA?leuk neg , blood neg; Bladder scan PVR 0 mL. Review of chart: US abdomen results reviewed--05/10/22-- Unremarkable findings. Kidneys WNL and no renal calculi visualized.? 01/22/2023: Plan: Augmentin 875 mg twic e a day for 21 days Patient was also reminded to avoid caffeine intake and to increase fluids intake. [facility] Medical History Anxiety Hypercalcemia Tinnitus, left ear BPPV (benign paroxysmal positional vertigo) Peptic ulcer disease Chronic GERD Surgical History Hx of endoscopy Hx of esophagogastroduodenoscopy No pertinent past surgical history Family History Mother No problems noted. Father No problems noted. Sister Leukemia Social History Housing: Apartment Alcohol intake: never Patient Tobacco Use Status: Never used Tobacco e-Cigarette/Vaping Use: Never Used Second Hand Smoke Exposure: No service: No Current occupational status: employed Current occupational exposures/hazards: No Cognitive needs: No Hearing needs: No Vision needs: Yes Review of Systems Const All systems reviewed & are unremarkable except as noted in HPI and below Reports no additional complaints Eyes Reports no additional complaints ENT Denies neck pain Card Denies leg edema Resp Denies cough GI Denies constipation Musc Reports no additional complaints and Denies neck pain Skin/Breast Denies rash and Denies unusual bruising Neuro Reports no additional complaints Psych Reports no additional complaints Endo Reports no additional complaints Aguilar/Lymph Reports no additional complaints Aller/Immun Reports no additional complaints Physical Exam Const General: healthy appearing, no acute distress and well developed Orientation/consciousness: patient oriented x3 HEENT Head: Yes normocephalic and Yes atraumatic Eyes Conjunctivae: conjunctivae normal Neck Neck: Yes normal visual inspection Chest Chest palpation & inspection: normal inspection of the chest Resp Effort & Inspection: normal respiratory effort Cardio Rate: regular rate GI Inspection: Yes normal to inspection Skin General skin exam: no rashes or lesions noted Neuro General: patient oriented x3 Extrem General: No pedal edema Psych Appearance: grossly normal Affect: normal affect Office Procedures Post Void Residual Post Residual Void Post Void Residual (PVR): 0 61420-Cucx Void Residual by ultrasound Results AMB Urinalysis, Automated UA Leukoctes 0 Anthony/uL Last Edit by ALEJO Rodriguez on 01/22/23 08:28 UA Nitrite Negative Last Edit by ALEJO Rodriguez on 01/22/23 08:28 UA Urobilinogen 0.2 mg/dL Last Edit by ALEJO Rodriguez on 01/22/23 08:2 8 UA Protein 0 mg/dL Last Edit by Mukesh Arita RMA on 01/22/23 08:28 UA pH 6.5 Last Edit by Mukesh Arita, RMA on 01/22/23 08:28 UA Blood 0 Philip/uL Last Edit by Mukesh Arita RMA on 01/22/23 08:28 UA Specific [place] 1.010 Last Edit by Mukesh Arita RMA on 01/22/23 08: 28 UA Ketone Last Edit by Mukesh Arita, RMA on 01/22/23 08:28 UA Bilirubin 0 mg/dL Last Edit by Mukesh Arita RMA on 01/22/23 08:28 UA Glucose 0 mg/dL Last Edit by Mukesh Arita RMA on 01/22/23 08:28 Results Reviewed Results Reviewed: Laboratory Last Values Urine pH (Auto) 6.5 01/22/23 08:24 Specific [place] (Auto) 1.010 01/22/23 08:24 Urine Protein (Auto) 0 mg/dL 01/22/23 08:24 Glucose (UA)(Auto) 0 mg/dL 01/22/23 08:24 Urine Blood (Auto) 0 Philip/uL 01/22/23 08:24 Urine Nitrite (Auto) Negative 01/22/23 08:24 Urine Bilirubin (Auto) 0 mg/dL 01/22/23 08:24 Urine Urobilinogen (Auto) 0.2 mg/dL 01/22/23 08:24 Leukocyte Esterase (Auto) 0 Anthony/uL 01/22/23 08:24 Assessment & Plan Assessment & Plan (1) Prostatitis: Code(s): N41.9 - Inflammatory disease of prostate, unspecified (2) Pain with urination: Code(s): R30.9 - Painful micturition, unspecified (3) Dysuria: Code(s): R30.0 - Dysuria Plan Augmentin 875 mg twice a day for 21 days Patient was also reminded to avoid caffeine intake and to increase fluids intake. Orders: Orders AMB Urinalysis Automated Today Z13.9 - Encounter for screening, unspecified AMB Post Void Residual by ultrasound Today N39.8 - Other specified disorders of urinary system Medications: New amoxicillin-pot clavulanate 875-125 mg 1 tab PO BID 21 days 42 tabs 0RF Patient Instructions: The patient had an opportunity to ask questions regarding treatment plan. All questions were answered. Imaging, Laboratory studies and physical exam results were discussed and reviewed in detail. No major barriers to understanding were identified. The patient expressed understanding and agreement with the above treatment plan.? ? ? The patient is aware they should contact our office by phone for worsening of their current condition or the appearance of new symptoms. Compliance is encouraged with any medications and followup testing that is ordered.? ? ? It is a privilege to be allowed the opportunity to participate in the urologic care of your patient. If you have any questions or concerns regarding treatment for the above conditions please do not hesitate to contact me. The office telephone contact is [phone].? ? ? This note is constructed in part using voice recognition software. While every effort has been made to ensure accuracy commercial specialist errors may have been in cluded.? ? ? Yours sincerely,? ? ? Deny Curtis MD? Coding Level of Care Code Est Pt Level 4 (97161) Diagnoses Prostatitis N41.9 Pain with urination R30.9 Dysuria R30.0 CPT Codes Post Residual Void - PVR CPT Code: 31562-Whac Void Residual by ultrasound ([id number])
== END 2023-01-22 09:11 | disposition home or self-care (01) ==
PROVIDERS: PCP Internal Medicine; Visit Provider Urology
DX: N41.9 Inflammatory disease of prostate, unspecified (principal); R30.9 Painful micturition, unspecified; R30.0 Dysuria; Z13.9 Encounter for screening, unspecified
CPT/HCPCS: 99214

== ENCOUNTER → 2023-01-22 08:10 | Outpatient (BNVA) | payer BC, SELFPAY | PROVIDERS: PCP Internal Medicine; Visit Provider Urology | DX: N41.9 Inflammatory disease of prostate, unspecified (principal); R30.0 Dysuria; N39.8 Other specified disorders of urinary system | CPT/HCPCS: 51798; 81003 ==

== ENCOUNTER 2023-02-13 09:58 | Outpatient (AMB) | payer BC, SELFPAY ==
--- NOTE | 2023-02-13 10:08 | MHC.OFFVIS ---
Intake Vital Signs 02/13/23 10:09 Height 5 ft 11 in Weight 177 lb BMI 24.7 BP 134/67 Blood Pressure Location Lt brachial Position Sitting Pulse 62 Intake Visit Reasons: 6 mnth follow up Intake Note: Patient 6 month follow up for GERD Patient denies any GI issues. 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 reviewed IMAGING STUDIES:??05/2022 ABD US SHOWED: 1. Diffusely echogenic liver without focal lesion. ?2. Mild hyperechoic pancreas. ? ENDOSCOPIC STUDIES: 04/23/22 EGD SHOWED: STOMACH: Mild gastric erythema with a few 1-2 mm chronic appearing pre-pyloric erosions. Biopsies were obtained to check for H pylori. DUODENUM: Nodular appearing mucosa in the proximal bulb - biopsied. Ulcers noted in the apex of the bulb on past EGD have healed.? Normal descending duodenum.? Biopsies were obtained from 3rd part of the duodenum to check for celiac sprue. Plan:? Patient has an appointment on 05/23/22 in the GI Clinic with Colleen Branham M.D.. Biopsies showed: A.? Small bowel, biopsy:? Small bowel mucosa with preserved villi, and congestion and hemorrhage, otherwise no specific change; no evidence of celiac disease.? B.? Duodenum, biopsy:? Duodenal mucosa with mild villous blunting and features of chronic/non-specific duodenitis; no evidence of celiac disease.? C.? Gastric antrum, biopsy:? Gastric antral mucosa with reactive changes, focal intestinal metaplasia with gland atrophy, and minimal chronic inactive gastritis; negative for H pylori and dysplasia. 10/15/21 EGD SHOWED: STOMACH: Moderate diffuse gastric erythema with multiple chronic appearing pre-pyloric erosions. Biopsies were obtained to check for H pylori. ? Mild gastroparesis versus slow gastric emptying due to duodenal ulcers Grade 2 flap valve on retroflexed examination of the cardia. DUODENUM: Multiple 1-2 cms linear superficial ulcers in the apex of the bulb - biopsied.? Normal bulb and descending duodenum.? Biopsies were obtained from 3rd part of the duodenum to check for celiac sprue. Plan:? Above findings were reviewed with the patient and PUD handout? was given in the discharge area. Pt was advised to start taking Omeprazole 20 mg twice daily and stop Famotidine. BIOPSIES SHOWED: A.? Small bowel, biopsy:? Small intestinal mucosa within normal limits. B.? Duodenum, ulcer, biopsy:? Ulcerated duodenal mucosa; negative for dysplasia or malignancy. C.? Stomach, antrum, biopsy:? Antral-type and oxyntic mucosa within normal limits; no Helicobacter organisms seen. TODAY'S VISIT: Doing better Tries to stick to a FODMAP diet Gets a food sensitivity test once in a while Recent lab test Patient cc: abdominal bloating and denies any other GI issues. I am doing well Occasionally feels bloated - after eating spicy foods Not taking Omeprazole since symptoms have improoved with change in diet Planning to go to [facility] next week for the holidays for a month. Parents are planning to [place] to the [place] Sisters are in the [place] PAST VISITS: Changing his diet. Notes a little dizziness and intermittent abd discomfort and burning related to some foods. Has not tried taking the Omeprazole PT CC: pt is light headed and dizziness after eating , light colored stools abdominal bloating and internal tremors causing anxiety and panic attack. Denies any other GI issues. Pt complains of fatigue, feeling light headed and SOB after eating. Notes upper abdominal pain which moves to the right side. Notes itchiness of hands - ? eczema Tension headaches Notes internal vibrations - not as frequent as in the past. Notes a dull pressure in the upper abdomen which makes it hard to breath Goes away after he eats. Denies fever, chills or sweating. Since last June, he would wake up in the middle of the night with heart racing Feels like he is going to have an anxiety attack. Has a normal BM daily - stool are pale yellow - denies diarrhea or constipation, black stools or rectal bleeding Tries to eat the same thing every day. Took Omeprazole for 2 months and then stopped since he noted palpitations. Wt loss of from 178 lbs and wt has been stable at 158 to 160 lbs for the past 4 months. Continues to have abdominal bloating and pressure in the stomach area. Not always the same severity. Pressure fluctuates. Notes internal tremors - buzzing feeling/internal tremor x past 5 months Vibrating sensation internally Stronger at night before he goes to sleep. Starts to feel it after eating sweets Ordered a mini breath ernestine - checked a few times and showed methane. Has been taking Oregano and Neem. Has a lot of food intolerance. Has been following a FODMAP diet with some improvement. If he takes a high FODMAP diet feels bad. Feels OK if he takes a low FODMAP diet. EGD results reviewed. Notes post prandial bloating after taking certain foods. Noted a pinched feeling in the lower chest over the past few yrs Denies symptoms of heartburn Notes throat tightness - once in a while Took a food intolerance test (ordered on line) which showed senstivity to several foods. Has been avoiding meats after the test Patient denies symptoms of heartburn, dysphagia, Notes nausea after eating certain foods -beef and heavy meats Denies, vomiting, change in appetite or weight. Lost 10 lbs over the past 6 weeks after he stopped taking meats and pasta [place] bloated after eating pasta. Also notes early satiety. Has nausea aftereating raw broccoli. Intermittent constipation and diarrhea, black stools or rectal bleeding. Stool is light in color. Pt reports having an EGD in [facility] 18 months ago which showed PUD. Pt was treated with Famotidine x 4-5 months Patient denies major cardiac or pulmonary problems, loud snoring or sleep apnea Denies problems with anesthesia in the past. Denies being on chronic anticoagulation and denies taking NSAIDS in the recent past.. Patient denies known family history of PUD, colon polyps, colon cancer or other GI malignancies. PAST GI HISTORY BY REVIEW OF MEDICAL RECORDS: 06/2021 PT WAS SEEN BY HERMELINDA LIRA NP: Patient was sent to us by his PCP.? Patient was diagnosed with peptic ulcer disease 2 years ago when he lived in [facility].? Patient reports that he had severe epigastric burning, underwent upper endoscopy that showed peptic ulcer disease.? Patient was placed on omeprazole that he was taking for while, however he needed to stop the medication because he was not feeling good on it.? Patient states that she felt like his mild was dry.? Patient started taking [id number] supplements and changed his diet.? Stop eating spicy food.? Over the past couple years her symptoms are much better, however he continues to occasionally have acid reflux.? Patient tried several different nzrx-[id number]-[id number] medications and now eating low acid diet and his symptoms are improved, however he continues to have acid reflux.? Patient reports that if she watches what he eats and is very careful he does not have symptoms.? His PCP put him on PPI, however he has not started taking it.? Patient denies taking any NSAIDs, denies? eating spicy or fried food.? Patient denies any nausea or vomiting.? Patient moved here several months ago for job.? 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 Father No problems noted. Sister Leukemia Social History Housing: Apartment Alcohol intake: never Patient Tobacco Use Status: Never used Tobacco e-Cigarette/Vaping Use: Never Used Second Hand Smoke Exposure: No service: No Current occupational status: employed Current occupational exposures/hazards: No Cognitive needs: No Hearing needs: No Vision needs: Yes Review of Systems Const All systems reviewed & are unremarkable except as noted in HPI and below Physical Exam Vital Signs: Last Vital Signs Pulse 62 02/13/23 10:09 BP 134/67 02/13/23 10:09 BMI result Body Mass Index 24.7 Const General: healthy appearing and no acute distress Nutritional Appearance: average body habitus Orientation/consciousness: patient oriented x3 Limitations: no limitations HEENT Head: Yes normal to inspection Ears: hearing grossly normal bilaterally Eyes Sclerae: sclerae normal Pupils: Equal, round and reactive pupils present Neck Neck: Yes normal visual inspection Chest Chest palpation & inspection: normal inspection of the chest Resp Effort & Inspection: normal respiratory effort Auscultation: clear to auscultation bilaterally Cardio Palpation: normal PMI Rate: regular rate Rhythm: regular rhythm Heart sounds: S1 normal heart sound present, S2 normal heart sound present and no murmurs GI Palpation (GI): Soft to palpation, nontender and No hepatosplenomegaly present Auscultation: normal bowel sounds Rectal Exam - Male: Yes deferred Skin General skin exam: no rashes or lesions noted Neuro General: patient oriented x3, gait normal and moves all extremities Cranial nerves: Yes Equal, round and reactive pupils present Psych Appearance: grossly normal Mental Status: mental status grossly normal Assessment & Plan Assessment & Plan (1) Elevated LFTs: Code(s): R79.89 - Other specified abnormal findings of blood chemistry Plan 37 YM followed in GI for GERD and PUD 10/15/21 EGD SHOWED?multiple chronic appearing pre-pyloric erosions and multiple 1-2 cms linear superficial ulcers in the apex of the bulb. Pt was advised to start taking Omeprazole 20 mg twice daily after EGD. Notes post prandial bloating after taking certain foods. Took a food intolerance test (ordered on line) which showed senstivity to several foods. Continues to have abdominal bloating and pressure in the stomach area. Has a lot of food intolerance. Has been following a FODMAP diet with some improvement. If he takes a high FODMAP diet feels bad. Feels OK if he takes a low FODMAP diet. Abd US was normal Patient was advised to take a course of metronidazole (500 mg twice daily x 10 days) prescribed by Hermelinda for SIBO Gastric emptying study was normal. 04/19/22 Pt complains of fatigue, feeling light headed and SOB after eating. Notes upper abdominal pain which moves to the right side. 08/22/22 patient reports improvement in symptoms with FODMAP diet and has not been taking the omeprazole anymore. Patient would advised to take omeprazole p.r.n. Repeat liver panel for FU of elevated LFTs in the past. Hepatitis and celiac serologies were negative, normal SOPHY, ceruloplasmin and alpha-1 antitrypsin. Elevated LFTs are likely due to fatty liver associated with weight gain of 20 lbs Patient was advised to lose 10-15 lbs and have repeat LFTs checked in 3 months Fu in 6 month Orders: Orders Liver Panel 05/01/23 R79.89 - Other specified abnormal findings of blood chemistry Coding Level of Care Code Est Pt Level 4 (36683) Diagnoses Elevated LFTs R79.89 Time Spent (min) 20
[2023-02-13 10:09] VITALS: BP 134/67; PULSE 62; BMI 24.7
== END 2023-02-13 10:33 | disposition home or self-care (01) ==
PROVIDERS: Visit Provider Internal Medicine Gastroenterology
DX: R79.89 Other specified abnormal findings of blood chemistry (principal)
CPT/HCPCS: 99214

== ENCOUNTER → 2023-02-13 09:58 | Outpatient (BNVA) | payer BC, SELFPAY | PROVIDERS: Visit Provider Internal Medicine Gastroenterology ==

== ENCOUNTER 2023-08-12 11:15 | Outpatient (REF) | payer BC, SELFPAY ==
[2023-08-12 12:52] LABS: Alanine Aminotransferase 115 U/L (0-40); Albumin Level 4.6 g/dL (3.5-5.0); Alkaline Phosphatase 49 U/L (39-117); Aspartate Amino Transferase 47 U/L (5-37); Bilirubin Direct 0.2 mg/dL (0.0-0.5); Bilirubin Total 0.7 mg/dL (0.0-1.0); Total Protein 8.5 g/dL (6.5-8.0)
== END 2023-08-12 11:16 | disposition home or self-care (01) ==
LOC: HO.LAB 11:15
PROVIDERS: PCP Internal Medicine; Visit Provider Internal Medicine Gastroenterology
DX: R79.89 Other specified abnormal findings of blood chemistry (principal)
CPT/HCPCS: 36415; 80076

== ENCOUNTER 2023-08-14 11:02 | Outpatient (AMB) | payer BC, SELFPAY ==
[2023-08-14 11:06] VITALS: BP 119/64; PULSE 68; BMI 25.0
--- NOTE | 2023-08-14 11:06 | MHC.OFFVIS ---
Vital Signs 08/14/23 11:06 Height 5 ft 11 in Weight 179 lb BMI 25.0 BP 119/64 Blood Pressure Location Lt brachial Position Sitting Pulse 68 Intake Visit Reasons: 6 month follow up Intake Note: Patient 6 month follow up for Elevated LFTs Patient denies any GI issues. 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 reviewed IMAGING STUDIES:??05/2022 ABD US SHOWED: 1. Diffusely echogenic liver without focal lesion.?2. Mild hyperechoic pancreas. ? ENDOSCOPIC STUDIES: 04/23/22 EGD SHOWED: STOMACH: Mild gastric erythema with a few 1-2 mm chronic appearing pre-pyloric erosions. Biopsies were obtained to check for H pylori. DUODENUM: Nodular appearing mucosa in the proximal bulb - biopsied. Ulcers noted in the apex of the bulb on past EGD have healed.? Normal descending duodenum.? Biopsies were obtained from 3rd part of the duodenum to check for celiac sprue. Plan:? Patient has an appointment on 05/23/22 in the GI Clinic with Colleen Branham M.D.. Biopsies showed: A.? Small bowel, biopsy:? Small bowel mucosa with preserved villi, and congestion and hemorrhage, otherwise no specific change; no evidence of celiac disease.? B.? Duodenum, biopsy:? Duodenal mucosa with mild villous blunting and features of chronic/non-specific duodenitis; no evidence of celiac disease.? C.? Gastric antrum, biopsy:? Gastric antral mucosa with reactive changes, focal intestinal metaplasia with gland atrophy, and minimal chronic inactive gastritis; negative for H pylori and dysplasia. 10/15/21 EGD SHOWED:STOMACH: Moderate diffuse gastric erythema with multiple chronic appearing pre-pyloric erosions. Biopsies were obtained to check for H pylori. ? Mild gastroparesis versus slow gastric emptying due to duodenal ulcers Grade 2 flap valve on retroflexed examination of the cardia. DUODENUM: Multiple 1-2 cms linear superficial ulcers in the apex of the bulb - biopsied.? Normal bulb and descending duodenum.? Biopsies were obtained from 3rd part of the duodenum to check for celiac sprue. Plan:? Above findings were reviewed with the patient and PUD handout? was given in the discharge area. Pt was advised to start taking Omeprazole 20 mg twice daily and stop Famotidine. BIOPSIES SHOWED: A.? Small bowel, biopsy:? Small intestinal mucosa within normal limits. B.? Duodenum, ulcer, biopsy:? Ulcerated duodenal mucosa; negative for dysplasia or malignancy. C.? Stomach, antrum, biopsy:? Antral-type and oxyntic mucosa within normal limits; no Helicobacter organisms seen. TODAY'S VISIT: Patient 6 month follow up for Elevated LFTs Lab results reviewed - persistent increase in LFTs likely due to fatty liver Patient denies any GI issues. Feels a lot better on a FODMAP diet - intermittent fasting eats from 2 to 8 pm Trying to loose weight - goal is a wt of 165 lbs Did a lot of excercise 2 days before lab tests and advised no excercise x 7 days before labs on FU testing in 3 months Doing better Tries to stick to a FODMAP diet Gets a food sensitivity test once in a while Recent lab test Works at [employer] Patient cc: abdominal bloating and denies any other GI issues. I am doing well Occasionally feels bloated - after eating spicy foods Not taking Omeprazole since symptoms have improoved with change in diet Planning to go to [facility] next week for the holidays for a month. Parents are planning to im[place]rate to the [place] Sisters are in the [place] PAST VISITS: Changing his diet. Notes a little dizziness and intermittent abd discomfort and burning related to some foods. Has not tried taking the Omeprazole PT CC: pt is light headed and dizziness after eating , light colored stools abdominal bloating and internal tremors causing anxiety and panic attack. Denies any other GI issues. Pt complains of fatigue, feeling light headed and SOB after eating. Notes upper abdominal pain which moves to the right side. Notes itchiness of hands - ? eczema Tension headaches Notes internal vibrations - not as frequent as in the past. Notes a dull pressure in the upper abdomen which makes it hard to breath Goes away after he eats. Denies fever, chills or sweating. Since last June, he would wake up in the middle of the night with heart racing Feels like he is going to have an anxiety attack. Has a normal BM daily - stool are pale yellow - denies diarrhea or constipation, black stools or rectal bleeding Tries to eat the same thing every day. Took Omeprazole for 2 months and then stopped since he noted palpitations. Wt loss of from 178 lbs and wt has been stable at 158 to 160 lbs for the past 4 months. Continues to have abdominal bloating and pressure in the stomach area. Not always the same severity. Pressure fluctuates. Notes internal tremors - buzzing feeling/internal tremor x past 5 months Vibrating sensation internally Stronger at night before he goes to sleep. Starts to feel it after eating sweets Ordered a mini breath ernestine - checked a few times and showed methane. Has been taking Oregano and Neem. Has a lot of food intolerance. Has been following a FODMAP diet with some improvement. If he takes a high FODMAP diet feels bad. Feels OK if he takes a low FODMAP diet. EGD results reviewed. Notes post prandial bloating after taking certain foods. Noted a pinched feeling in the lower chest over the past few yrs Denies symptoms of heartburn Notes throat tightness - once in a while Took a food intolerance test (ordered on line) which showed senstivity to several foods. Has been avoiding meats after the test Patient denies symptoms of heartburn, dysphagia, Notes nausea after eating certain foods -beef and heavy meats Denies, vomiting, change in appetite or weight. Lost 10 lbs over the past 6 weeks after he stopped taking meats and pasta [place] bloated after eating pasta. Also notes early satiety. Has nausea aftereating raw broccoli. Intermittent constipation and diarrhea, black stools or rectal bleeding. Stool is light in color. Pt reports having an EGD in [facility] 18 months ago which showed PUD. Pt was treated with Famotidine x 4-5 months Patient denies major cardiac or pulmonary problems, loud snoring or sleep apnea Denies problems with anesthesia in the past. Denies being on chronic anticoagulation and denies taking NSAIDS in the recent past.. Patient denies known family history of PUD, colon polyps, colon cancer or other GI malignancies. PAST GI HISTORY BY REVIEW OF MEDICAL RECORDS: 06/2021 PT WAS SEEN BY HERMELINDA LIRA NP:Patient was sent to us by his PCP.? Patient was diagnosed with peptic ulcer disease 2 years ago when he lived in [facility].? Patient reports that he had severe epigastric burning, underwent upper endoscopy that showed peptic ulcer disease.? Patient was placed on omeprazole that he was taking for while, however he needed to stop the medication because he was not feeling good on it.? Patient states that she felt like his mild was dry.? Patient started taking [id number] supplements and changed his diet.? Stop eating spicy food.? Over the past couple years her symptoms are much better, however he continues to occasionally have acid reflux.? Patient tried several different iels-pih-[id number] medications and now eating low acid diet and his symptoms are improved, however he continues to have acid reflux.? Patient reports that if she watches what he eats and is very careful he does not have symptoms.? His PCP put him on PPI, however he has not started taking it.? Patient denies taking any NSAIDs, denies? eating spicy or fried food.? Patient denies any nausea or vomiting.? Patient moved here several months ago for job.? [facility] Medical History Anxiety Hypercalcemia Tinnitus, left ear BPPV (benign paroxysmal positional vertigo) Peptic ulcer disease Chronic GERD Surgical History Hx of endoscopy Hx of esophagogastroduodenoscopy No pertinent past surgical history Family History Mother No problems noted. Father No problems noted. Sister Leukemia Social History Housing: Apartment Alcohol intake: never Patient Tobacco Use Status: Never used Tobacco e-Cigarette/Vaping Use: Never Used Second Hand Smoke Exposure: No service: No Current occupational status: employed Current occupational exposures/hazards: No Cognitive needs: No Hearing needs: No Vision needs: Yes Review of Systems Const All systems reviewed & are unremarkable except as noted in HPI and below Physical Exam Vital Signs: Last Vital Signs Pulse 68 08/14/23 11:06 BP 119/64 08/14/23 11:06 BMI result Body Mass Index 25.0 Const General: healthy appearing and no acute distress Nutritional Appearance: average body habitus Orientation/consciousness: patient oriented x3 Limitations: no limitations HEENT Head: Yes normal to inspection Ears: hearing grossly normal bilaterally Eyes Sclerae: sclerae normal Pupils: Equal, round and reactive pupils present Neck Neck: Yes normal visual inspection Chest Chest palpation & inspection: normal inspection of the chest Resp Effort & Inspection: normal respiratory effort Auscultation: clear to auscultation bilaterally Cardio Palpation: normal PMI Rate: regular rate Rhythm: regular rhythm Heart sounds: S1 normal heart sound present, S2 normal heart sound present and no murmurs GI Palpation (GI): Soft to palpation, nontender and No hepatosplenomegaly present Auscultation: normal bowel sounds Rectal Exam - Male: Yes deferred Skin General skin exam: no rashes or lesions noted Neuro General: patient oriented x3, gait normal and moves all extremities Cranial nerves: Yes Equal, round and reactive pupils present Psych Appearance: grossly normal Mental Status: mental status grossly normal Results AMB Urinalysis, Automated UA Leukoctes 0 Anthony/uL Last Edit by ALEJO Rodriguez on 08/14/23 13:09 UA Nitrite Negative Last Edit by ALEJO Rodriguez on 08/14/23 13:09 UA Urobilinogen 0.2 mg/dL Last Edit by ALEJO Rodriguez on 08/14/23 13:09 UA Protein 0 mg/dL Last Edit by ALEJO Rodriguez on 08/14/23 13:09 UA pH 6.0 Last Edit by ALEJO Rodriguez on 08/14/23 13:09 UA Blood 0 Philip/uL Last Edit by ALEJO Rodriguez on 08/14/23 13:09 UA Specific [place] 1.005 Last Edit by ALEJO Rodriguez on 08/14/23 13:09 UA Ketone Negative Last Edit by ALEJO Rodriguez on 08/14/23 13:09 UA Bilirubin 0 mg/dL Last Edit by ALEJO Rodriguez on 08/14/23 13:09 UA Glucose 0 mg/dL Last Edit by ALEJO Rodriguez on 08/14/23 13:09 Assessment & Plan Assessment & Plan (1) Chronic GERD: Code(s): K21.9 - Gastro-esophageal reflux disease without esophagitis Category: Medical (2) Peptic ulcer disease: Code(s): K27.9 - Peptic ulcer, site unspecified, unspecified as acute or chronic, without hemorrhage or perforation Category: Medical (3) Upper abdominal pain: Code(s): R10.10 - Upper abdominal pain, unspecified Category: Medical (4) Early satiety: Code(s): R68.81 - Early satiety Category: Medical (5) Elevated LFTs: Code(s): R79.89 - Other specified abnormal findings of blood chemistry Category: Medical Plan 38 YM followed in GI for GERD and PUD 10/15/21 EGD SHOWED?multiple chronic appearing pre-pyloric erosions and multiple 1-2 cms linear superficial ulcers in the apex of the bulb. Pt was advised to start taking Omeprazole 20 mg twice daily after EGD. Notes post prandial bloating after taking certain foods. Took a food intolerance test (ordered on line) which showed senstivity to several foods. Continues to have abdominal bloating and pressure in the stomach area. Has a lot of food intolerance. Has been following a FODMAP diet with some improvement. If he takes a high FODMAP diet feels bad. Feels OK if he takes a low FODMAP diet. Abd US was normal Patient was advised to take a course of metronidazole (500 mg twice daily x 10 days) prescribed by Hermelinda for SIBO Gastric emptying study was normal. 04/19/22 Pt complains of fatigue, feeling light headed and SOB after eating. Notes upper abdominal pain which moves to the right side. 08/22/22 patient reports improvement in symptoms with FODMAP diet and has not been taking the omeprazole anymore. Patient would advised to take omeprazole p.r.n. Repeat liver panel for FU of elevated LFTs in the past. Hepatitis and celiac serologies were negative, normal SOPHY, ceruloplasmin and alpha-1 antitrypsin. Elevated LFTs are likely due to fatty liver associated with weight gain of 20 lbs Patient was advised to lose 10-15 lbs and have repeat LFTs checked in 3 months 08/14/23 Patient denies any GI issues. Feels a lot better on a FODMAP diet - intermittent fasting eats from 2 to 8 pm Trying to loose weight - goal is a wt of 165 lbs Did a lot of excercise 2 days before lab tests and advised no excercise x 7 days before labs on FU testing in 3 months Repeat labs in 3 months and Fu in 6 months Orders: Orders Liver Panel 11/09/23 R79.89 - Other specified abnormal findings of blood chemistry Coding Level of Care Code Est Pt Level 3 (29082) Diagnoses Chronic GERD K21.9 Peptic ulcer disease K27.9 Upper abdominal pain R10.10 Early satiety R68.81 Elevated LFTs R79.89 Time Spent (min) 17
== END 2023-08-14 11:40 | disposition home or self-care (01) ==
PROVIDERS: PCP Internal Medicine; Visit Provider Internal Medicine Gastroenterology
DX: K21.9 Gastro-esophageal reflux disease without esophagitis (principal); K27.9 Peptic ulcer, site unspecified, unspecified as acute or chronic, without hemorrhage or perforation; R10.10 Upper abdominal pain, unspecified; R68.81 Early satiety; R79.89 Other specified abnormal findings of blood chemistry
CPT/HCPCS: 99213

== ENCOUNTER → 2023-08-14 11:02 | Outpatient (BNVA) | payer BC, SELFPAY | PROVIDERS: PCP Internal Medicine; Visit Provider Internal Medicine Gastroenterology | DX: N41.9 Inflammatory disease of prostate, unspecified (principal); R30.0 Dysuria | CPT/HCPCS: 81003 ==

== ENCOUNTER 2023-08-14 12:47 | Outpatient (AMB) | payer BC, SELFPAY ==
--- NOTE | 2023-08-14 13:03 | A.OFFVIS_ITS ---
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 He was last seen 01/22/23 and treated for prostatitis with Augmentin. He had prior treatment of prostatitis with Levaquin. He is here today with complaints that he is occasionally noticing some pain in the scrotal area after intercourse it does not happen all the time and the pain is not as severe or constant has in the past. He states he has cut out all caffeine. He admits he has not been drinking a lot of water. I have discussed a trial of Flomax 0.4 mg daily after 2 weeks if he still has significant symptoms I would like him to call the nurse and I will consider another course of antibiotics at that time. Review of chart: 01/22/2023? The patient has a past medical history significant for anxiety, chronic GERD, hypercalcemia, and peptic ulcer disease. He was last seen by me on 07/18/2022 for history of prostatitis. The patient was advised to follow-up PRN during that time.? On prior evaluation he had a prostatic massage and fluid was sent for MicroGen testing which resulted positive for klebsiella bacteria and sensitive to quinolones. He was treated with a 10 day course of Levaquin. He states that the symptoms are coming back. Patient noted burning with urination. In review of MicroGen testing,the bacteria was also sensitive to Augmentin. UA?leuk neg, blood neg; Bladder scan PVR 0 mL. US abdomen results reviewed--05/10/22-- Unremarkable findings. Kidneys WNL and no renal calculi visualized.? PFSH Medical History Anxiety Hypercalcemia Tinnitus, left ear BPPV (benign paroxysmal positional vertigo) Peptic ulcer disease Chronic GERD Surgical History Hx of endoscopy Hx of esophagogastroduodenoscopy No pertinent past surgical history Family History Mother No problems noted. Father No problems noted. Sister Leukemia Social History Housing: Apartment Alcohol intake: never Patient Tobacco Use Status: Never used Tobacco e-Cigarette/Vaping Use: Never Used Second Hand Smoke Exposure: No service: No Current occupational status: employed Current occupational exposures/hazards: No Cognitive needs: No Hearing needs: No Vision needs: Yes Review of Systems Const All systems reviewed & are unremarkable except as noted in HPI and below Reports no additional complaints Eyes Reports no additional complaints ENT Reports no additional complaints Card Reports no additional complaints Resp Reports no additional complaints GI Reports no additional complaints Reports as per HPI Musc Reports no additional complaints Skin/Breast Reports system reviewed and no additional complaints, except as documented Neuro Reports no additional complaints Psych Reports no additional complaints Endo Reports no additional complaints Aguilar/Lymph Reports no additional complaints Aller/Immun Reports no additional complaints Results AMB Urinalysis, Automated UA Leukoctes 0 Anthony/uL Last Edit by ALEJO Rodriguez on 08/14/23 13:09 UA Nitrite Negative Last Edit by ALEJO Rodriguez on 08/14/23 13:09 UA Urobilinogen 0.2 mg/dL Last Edit by ALEJO Rodriguez on 08/14/23 13:0 9 UA Protein 0 mg/dL Last Edit by Mukesh Juan JALEJO sharma on 08/14/23 13:09 UA pH 6.0 Last Edit by Mukesh AngeloBROOKLYNN sharmaA on 08/14/23 13:09 UA Blood 0 Philip/uL Last Edit by Mukesh Arita, RMA on 08/14/23 13:09 UA Specific [place] 1.005 Last Edit by Mukesh Arita A on 08/14/23 13: 09 UA Ketone Negative Last Edit by Eleonoranikki Juan J, A on 08/14/23 13:09 UA Bilirubin 0 mg/dL Last Edit by Mukesh Angelozachary A on 08/14/23 13:09 UA Glucose 0 mg/dL Last Edit by Eleonoranikki Juan J, Mitzy on 08/14/23 13:09 Results Reviewed Results Reviewed: Laboratory Last Values Urine pH (Auto) 6.0 08/14/23 13:06 Specific [place] (Auto) 1.005 08/14/23 13:06 Urine Protein (Auto) 0 mg/dL 08/14/23 13:06 Glucose (UA)(Auto) 0 mg/dL 08/14/23 13:06 Urine Ketones (Auto) Negative 08/14/23 13:06 Urine Blood (Auto) 0 Philip/uL 08/14/23 13:06 Urine Nitrite (Auto) Negative 08/14/23 13:06 Urine Bilirubin (Auto) 0 mg/dL 08/14/23 13:06 Urine Urobilinogen (Auto) 0.2 mg/dL 08/14/23 13:06 Leukocyte Esterase (Auto) 0 Anthony/uL 08/14/23 13:06 Date of Service: 05/10/22 EXAMINATION: US ABDOMEN COMPLETE CLINICAL INFORMATION: Elevated LFTs, upper abdominal pain. COMPARISON: None TECHNIQUE: Real-time imaging of the abdominal viscera. FINDINGS: PANCREAS: The pancreas is normal size. It appears mildly hyperechoic. No focal lesion seen.. ABDOMINAL AORTA: The proximal, mid, and distal segments are normal in caliber. INFERIOR VENA CAVA: Visualized portions are normal. LIVER: The liver is normal in size. The liver contour is normal. Parenchymal echogenicity is increased. No focal hepatic lesion. There is no intrahepatic biliary duct dilatation seen. GALLBLADDER: Normal. The gallbladder is physiologically distended without evidence of stones, sludge, polyps, wall thickening or pericholecystic fluid. COMMON BILE DUCT: Normal in caliber measuring 0.5 cm in diameter. RIGHT KIDNEY: Normal. No hydronephrosis. No renal calculi or focal parenchymal lesions. The kidney measures 10.8 cm in maximum dimension. LEFT KIDNEY: Normal. No hydronephrosis. No renal calculi or focal parenchymal lesions. The kidney measures 10.8 cm in maximum dimension. SPLEEN: Normal. The spleen measures 10.8 cm in maximum dimension. FREE FLUID: None. IMPRESSION: 1. Diffusely echogenic liver without focal lesion. ? 2. Mild hyperechoic pancreas. ? 3. The rest of the abdominal ultrasound is unremarkable.? Assessment & Plan Assessment & Plan (1) Prostatitis: Code(s): N41.9 - Inflammatory disease of prostate, unspecified Category: Medical (2) Pain with urination: Code(s): R30.9 - Painful micturition, unspecified Category: Medical (3) Dysuria: Code(s): R30.0 - Dysuria Category: Medical Plan Flomax 0.4 mg daily. After 2 weeks if symptoms persist he is to inform the urology nurse at bedtime I may consider a another course of antibiotic therapy. Instructed to increase fluid intake. Patient has cut caffeine out of his diet. Orders: Orders AMB Urinalysis Automated Today Z13.9 - Encounter for screening, unspecified Medications: New tamsulosin (Flomax) take in the evening 0.4 mg PO DAILY 30 caps 1RF Patient Instructions: The patient had an opportunity to ask questions regarding treatment plan. The patient expressed understanding and agreement with the above treatment plan. The patient is aware they should contact our office by phone for worsening of their current condition or the appearance of new symptoms. Compliance is encouraged with any medications and followup testing that is ordered. It is a privilege to be allowed the opportunity to participate in the urologic care of your patient. If you have any questions or concerns regarding treatment for the above conditions please do not hesitate to contact me. The office telephone contact is [phone]. This note is constructed in part using voice recognition software. While every effort has been made to ensure accuracy passenger service manager errors may have been included. Yours sincerely, Deny Curtis MD Coding Level of Care Code Est Pt Level 4 (55784) Diagnoses Prostatitis N41.9 Pain with urination R30.9 Dysuria R30.0
== END 2023-08-14 13:48 | disposition home or self-care (01) ==
PROVIDERS: PCP Internal Medicine; Visit Provider Urology
DX: N41.9 Inflammatory disease of prostate, unspecified (principal); R30.9 Painful micturition, unspecified; R30.0 Dysuria; Z13.9 Encounter for screening, unspecified
CPT/HCPCS: 99214

== ENCOUNTER 2024-01-02 09:36 | Outpatient (REF) | payer BC, SELFPAY ==
[2024-01-02 13:18] LABS: Alanine Aminotransferase 79 U/L (0-40); Albumin Level 4.9 g/dL (3.5-5.0); Alkaline Phosphatase 49 U/L (39-117); Aspartate Amino Transferase 37 U/L (5-37); Bilirubin Direct 0.2 mg/dL (0.0-0.5); Bilirubin Total 0.7 mg/dL (0.0-1.0); Total Protein 8.8 g/dL (6.5-8.0)
[2024-01-05 23:03] LABS: Prot Elec - Albumin 4.9 g/dL (3.8-4.8); Prot Elec - Alpha1 0.3 g/dL (0.2-0.3); Prot Elec - Alpha2 0.7 g/dL (0.5-0.9); Prot Elec - Beta 1 0.5 g/dL (0.4-0.6); Prot Elec - Beta 2 0.5 g/dL (0.2-0.5); Prot Elec - Gamma 1.4 g/dL (0.8-1.7); Prot Elec - Total Protein 8.4 g/dL (6.1-8.1)
[2024-01-07 14:03] LABS: Liver Kidney Microsomal Ab <=20.0 U (<=20.0); Smooth Muscle Antibody <20 U (<20)
== END 2024-01-02 09:37 | disposition home or self-care (01) ==
LOC: HO.LAB 09:36
PROVIDERS: PCP Internal Medicine; Visit Provider Internal Medicine Gastroenterology
DX: R79.89 Other specified abnormal findings of blood chemistry (principal)
CPT/HCPCS: 36415; 80076; 84165; 86015; 86376

== ENCOUNTER 2024-01-05 11:21 | Outpatient (AMB) | payer BC, SELFPAY ==
--- NOTE | 2024-01-05 11:23 | MHC.OFFVIS ---
Vital Signs 01/05/24 11:24 Height 5 ft 11 in Weight 187 lb BMI 26.1 BP 128/56 L Blood Pressure Location Lt brachial Position Sitting Pulse 54 Intake Visit Reasons: Chronic GERD/LAB RESULT Intake Note: Patient follow up for Chronic GERD and UA results. Patient denies any GI issues for today. 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 (weighs 180 to 185 lbs) Trying to get down to 170 to 175 lbs PAST VISITS: Lab results reviewed - persistent increase in LFTs likely due to fatty liver Patient denies any GI issues. Feels a lot better on a FODMAP diet - intermittent fasting eats from 2 to 8 pm Trying to loose weight - goal is a wt of 165 lbs Did a lot of excercise 2 days before lab tests and advised no excercise x 7 days before labs on FU testing in 3 months Doing better Tries to stick to a FODMAP diet Gets a food sensitivity test once in a while Recent lab test Works at [employer] Patient cc: abdominal bloating and denies any other GI issues. I am doing well Occasionally feels bloated - after eating spicy foods Not taking Omeprazole since symptoms have improoved with change in diet Planning to go to [facility] next week for the holidays for a month. Parents are planning to [place] Sisters are in the [place] Changing his diet. Notes a little dizziness and intermittent abd discomfort and burning related to some foods. Has not tried taking the Omeprazole PT CC: pt is light headed and dizziness after eating , light colored stools abdominal bloating and internal tremors causing anxiety and panic attack. Denies any other GI issues. Pt complains of fatigue, feeling light headed and SOB after eating. Notes upper abdominal pain which moves to the right side. Notes itchiness of hands - ? eczema Tension headaches Notes internal vibrations - not as frequent as in the past. Notes a dull pressure in the upper abdomen which makes it hard to breath Goes away after he eats. Denies fever, chills or sweating. Since last June, he would wake up in the middle of the night with heart racing Feels like he is going to have an anxiety attack. Has a normal BM daily - stool are pale yellow - denies diarrhea or constipation, black stools or rectal bleeding Tries to eat the same thing every day. Took Omeprazole for 2 months and then stopped since he noted palpitations. Wt loss of from 178 lbs and wt has been stable at 158 to 160 lbs for the past 4 months. Continues to have abdominal bloating and pressure in the stomach area. Not always the same severity. Pressure fluctuates. Notes internal tremors - buzzing feeling/internal tremor x past 5 months Vibrating sensation internally Stronger at night before he goes to sleep. Starts to feel it after eating sweets Ordered a mini breath ernestine - checked a few times and showed methane. Has been taking Oregano and Neem. Has a lot of food intolerance. Has been following a FODMAP diet with some improvement. If he takes a high FODMAP diet feels bad. Feels OK if he takes a low FODMAP diet. EGD results reviewed. Notes post prandial bloating after taking certain foods. Noted a pinched feeling in the lower chest over the past few yrs Denies symptoms of heartburn Notes throat tightness - once in a while Took a food intolerance test (ordered on line) which showed senstivity to several foods. Has been avoiding meats after the test Patient denies symptoms of heartburn, dysphagia, Notes nausea after eating certain foods -beef and heavy meats Denies, vomiting, change in appetite or weight. Lost 10 lbs over the past 6 weeks after he stopped taking meats and pasta [place] bloated after eating pasta. Also notes early satiety. Has nausea aftereating raw broccoli. Intermittent constipation and diarrhea, black stools or rectal bleeding. Stool is light in color. Pt reports having an EGD in [facility] 18 months ago which showed PUD. Pt was treated with Famotidine x 4-5 months Patient denies major cardiac or pulmonary problems, loud snoring or sleep apnea Denies problems with anesthesia in the past. Denies being on chronic anticoagulation and denies taking NSAIDS in the recent past.. Patient denies known family history of PUD, colon polyps, colon cancer or other GI malignancies. LABS IN [facility] :? reviewed IMAGING STUDIES:??05/2022 ABD US SHOWED: 1. Diffusely echogenic liver without focal lesion.?2. Mild hyperechoic pancreas. ? ENDOSCOPIC STUDIES: 04/23/22 EGD SHOWED: STOMACH: Mild gastric erythema with a few 1-2 mm chronic appearing pre-pyloric erosions. Biopsies were obtained to check for H pylori. DUODENUM: Nodular appearing mucosa in the proximal bulb - biopsied. Ulcers noted in the apex of the bulb on past EGD have healed.? Normal descending duodenum.? Biopsies were obtained from 3rd part of the duodenum to check for celiac sprue. Plan:? Patient has an appointment on 05/23/22 in the GI Clinic with Colleen Branham M.D.. Biopsies showed: A.? Small bowel, biopsy:? Small bowel mucosa with preserved villi, and congestion and hemorrhage, otherwise no specific change; no evidence of celiac disease.? B.? Duodenum, biopsy:? Duodenal mucosa with mild villous blunting and features of chronic/non-specific duodenitis; no evidence of celiac disease.? C.? Gastric antrum, biopsy:? Gastric antral mucosa with reactive changes, focal intestinal metaplasia with gland atrophy, and minimal chronic inactive gastritis; negative for H pylori and dysplasia. 10/15/21 EGD SHOWED: STOMACH: Moderate diffuse gastric erythema with multiple chronic appearing pre-pyloric erosions. Biopsies were obtained to check for H pylori. ? Mild gastroparesis versus slow gastric emptying due to duodenal ulcers Grade 2 flap valve on retroflexed examination of the cardia. DUODENUM: Multiple 1-2 cms linear superficial ulcers in the apex of the bulb - biopsied.? Normal bulb and descending duodenum.? Biopsies were obtained from 3rd part of the duodenum to check for celiac sprue. Plan:? Above findings were reviewed with the patient and PUD handout? was given in the discharge area. Pt was advised to start taking Omeprazole 20 mg twice daily and stop Famotidine. BIOPSIES SHOWED: A.? Small bowel, biopsy:? Small intestinal mucosa within normal limits. B.? Duodenum, ulcer, biopsy:? Ulcerated duodenal mucosa; negative for dysplasia or malignancy. C.? Stomach, antrum, biopsy:? Antral-type and oxyntic mucosa within normal limits; no Helicobacter organisms seen. PAST GI HISTORY BY REVIEW OF MEDICAL RECORDS: 06/2021 PT WAS SEEN BY HERMELINDA LIRA DIRECTOR OF MANAGED CARE: Patient was sent to us by his PCP.? Patient was diagnosed with peptic ulcer disease 2 years ago when he lived in [facility].? Patient reports that he had severe epigastric burning, underwent upper endoscopy that showed peptic ulcer disease.? Patient was placed on omeprazole that he was taking for while, however he needed to stop the medication because he was not feeling good on it.? Patient states that she felt like his mild was dry.? Patient started taking [id number]-pinbowm supplements and changed his diet.? Stop eating spicy food.? Over the past couple years her symptoms are much better, however he continues to occasionally have acid reflux.? Patient tried several different [id number] medications and now eating low acid diet and his symptoms are improved, however he continues to have acid reflux.? Patient reports that if she watches what he eats and is very careful he does not have symptoms.? His PCP put him on PPI, however he has not started taking it.? Patient denies taking any NSAIDs, denies? eating spicy or fried food.? Patient denies any nausea or vomiting.? Patient moved here several months ago for job.? [facility] [place] [facility] History (Updated 01/05/24 @ 11:37 by Colleen Branham MD) Multiple duodenal ulcers Anxiety Hypercalcemia Tinnitus, left ear BPPV (benign paroxysmal positional vertigo) Peptic ulcer disease Chronic GERD Surgical History Hx of endoscopy Hx of esophagogastroduodenoscopy No pertinent past surgical history Family History Mother No problems noted. Father No problems noted. Sister Leukemia Social History Housing: Apartment Alcohol intake: never Patient Tobacco Use Status: Never used Tobacco e-Cigarette/Vaping Use: Never Used Second Hand Smoke Exposure: No service: No Current occupational status: employed Current occupational exposures/hazards: No Cognitive needs: No Hearing needs: No Vision needs: Yes Review of Systems Const All systems reviewed & are unremarkable except as noted in HPI and below Physical Exam Vital Signs: Last Vital Signs Pulse 54 01/05/24 11:24 BP 128/56 L 01/05/24 11:24 BMI result Body Mass Index 26.1 Const General: healthy appearing and no acute distress Nutritional Appearance: average body habitus Orientation/consciousness: patient oriented x3 Limitations: no limitations HEENT Head: Yes normal to inspection Ears: hearing grossly normal bilaterally Eyes Sclerae: sclerae normal Pupils: Equal, round and reactive pupils present Neck Neck: Yes normal visual inspection Chest Chest palpation & inspection: normal inspection of the chest Resp Effort & Inspection: normal respiratory effort Auscultation: clear to auscultation bilaterally Cardio Palpation: normal PMI Rate: regular rate Rhythm: regular rhythm Heart sounds: S1 normal heart sound present, S2 normal heart sound present and no murmurs GI Palpation (GI): Soft to palpation, nontender and No hepatosplenomegaly present Auscultation: normal bowel sounds Rectal Exam - Male: Yes deferred Skin General skin exam: no rashes or lesions noted Neuro General: patient oriented x3, gait normal and moves all extremities Cranial nerves: Yes Equal, round and reactive pupils present Psych Appearance: grossly normal Mental Status: mental status grossly normal Assessment & Plan Assessment & Plan (1) Chronic GERD: Code(s): K21.9 - Gastro-esophageal reflux disease without esophagitis Category: Medical (2) Upper abdominal pain: Code(s): R10.10 - Upper abdominal pain, unspecified Category: Medical (3) Early satiety: Code(s): R68.81 - Early satiety Category: Medical (4) Elevated LFTs: Code(s): R79.89 - Other specified abnormal findings of blood chemistry Category: Medical Plan 38 YM followed in GI for GERD and PUD 10/15/21 EGD SHOWED?multiple chronic appearing pre-pyloric erosions and multiple 1-2 cms linear superficial ulcers in the apex of the bulb. Pt was advised to start taking Omeprazole 20 mg twice daily after EGD. Notes post prandial bloating after taking certain foods. Took a food intolerance test (ordered on line) which showed senstivity to several foods. Continues to have abdominal bloating and pressure in the stomach area. Has a lot of food intolerance. Has been following a FODMAP diet with some improvement. If he takes a high FODMAP diet feels bad. Feels OK if he takes a low FODMAP diet. Abd US was normal Patient was advised to take a course of metronidazole (500 mg twice daily x 10 days) prescribed by Hermelinda for SIBO Gastric emptying study was normal. 04/19/22 Pt complains of fatigue, feeling light headed and SOB after eating. Notes upper abdominal pain which moves to the right side. 08/22/22 patient reports improvement in symptoms with FODMAP diet and has not been taking the omeprazole anymore. Patient would advised to take omeprazole p.r.n. Repeat liver panel for FU of elevated LFTs in the past. Hepatitis and celiac serologies were negative, normal SOPHY, ceruloplasmin and alpha-1 antitrypsin. Elevated LFTs are likely due to fatty liver associated with weight gain of 20 lbs Patient was advised to lose 10-15 lbs and have repeat LFTs checked in 3 months 08/14/23 Patient denies any GI issues. Feels a lot better on a FODMAP diet - intermittent fasting eats from 2 to 8 pm Trying to loose weight - goal is a wt of 165 lbs Did a lot of excercise 2 days before lab tests and advised no excercise x 7 days before labs on FU testing in 3 months 01/05/24 Repeat labs in 4 months and Fu appt in 6 month Orders: Orders Liver Panel 3 Months R789 - Other specified abnormal findings of blood chemistry IRON PROFILE 3 Months R7 - Other specified abnormal findings of blood chemistry Ferritin 3 Months - Other specified abnormal findings of blood chemistry Coding Level of Care Code Est Pt Level 3 (63844) Diagnoses Chronic GERD K21.9 Upper abdominal pain R10.10 Early satiety R68.81 Elevated LFTs R79.89 Time Spent (min) 15
[2024-01-05 11:24] VITALS: BP 128/56; PULSE 54; BMI 26.1
== END 2024-01-05 13:07 | disposition home or self-care (01) ==
PROVIDERS: PCP Internal Medicine; Visit Provider Internal Medicine Gastroenterology
DX: K21.9 Gastro-esophageal reflux disease without esophagitis (principal); R10.10 Upper abdominal pain, unspecified; R68.81 Early satiety; R79.89 Other specified abnormal findings of blood chemistry
CPT/HCPCS: 99213

== ENCOUNTER → 2024-01-05 11:21 | Outpatient (BNVA) | payer BC, SELFPAY | PROVIDERS: PCP Internal Medicine; Visit Provider Internal Medicine Gastroenterology ==

== ENCOUNTER 2024-01-19 14:26 | Outpatient (AMB) | payer BC, SELFPAY ==
--- NOTE | 2024-01-19 14:28 | MHC.PC.OV ---
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 Accompanied by: Self / Same As Patient Allergies hydroxyzine Allergy (Intermediate, Verified 01/19/24 14:36) Palpitations omeprazole Allergy (Verified 01/19/24 14:36) Itching famotidine Adverse Reaction (Verified 01/19/24 14:36) Itching shellfish derived Adverse Reaction (Verified 01/19/24 14:36) Itching Medication List - Last Reconciled 01/19/24 by Aminata Scott MD No Known Home Meds Tobacco use date assessed: 01/19/24 Dental Screening Dental Screen Date: 01/19/24 Did you have a dental visit in the last 12 months?: Yes Did you have a dental problem in the last 6 months where you did not have access to dental care?: No Was dental information given to patient?: Patient has dentist HPI HPI Comments History of Present Illness Details This is a 38-year-old male that comes for his physical exam. No family history of colon cancer. No chest pain or shortness on breath. Occasional right knee pain. Liver enzymes are follow by Gastroenterology. [facility] Medical History Multiple duodenal ulcers Anxiety Hypercalcemia Tinnitus, left ear BPPV (benign paroxysmal positional vertigo) Peptic ulcer disease Chronic GERD Surgical History Hx of endoscopy Hx of esophagogastroduodenoscopy No pertinent past surgical history Family History Mother No problems noted. Father No problems noted. Sister Leukemia Social History Housing: Apartment Alcohol intake: never Patient Tobacco Use Status: Never used Tobacco e-Cigarette/Vaping Use: Never Used Second Hand Smoke Exposure: No service: No Current occupational status: employed Current occupational exposures/hazards: No Cognitive needs: No Hearing needs: No Vision needs: Yes Questionnaire PHQ-9 Over the last 2 weeks, how often have you been bothered by any of the following problems? 1. Little interest or pleasure in doing things: not at all 2. Feeling down, depressed, or hopeless: not at all 3. Trouble falling or staying asleep, or sleeping too much: not at all 4. Feeling tired or having little energy: not at all 5. Poor appetite or overeating: not at all 6. Feeling bad about yourself - or that you are a failure or have let yourself or your family down: not at all 7. Trouble concentrating on things, such as reading the newspaper or watching television: not at all 8. Moving or speaking so slowly that other people could have noticed. Or the opposite - being so fidgety or restless that you have been moving around a lot more than usual: not at all 9. Thoughts that you would be better off or of hurting yourself in some way: not at all Total score: 0 Depression Screening Interpretation: Negative Depression Screening Done: Yes 26176 - PHQ-9 Billing: Yes Source: Developed by Drs. Dirk Woodard, Cherise Beasley, Joshua Colindres and colleagues, with an educational mario from [employer]. Thrive Questionnaire Date Thrive assessed: 01/19/24 I am a: Patient What is your living situation today?: I have a steady place to live Within the past 12 months, did the food you bought not last and you didn't have the money to get more?: Never true Within the past 12 months, did you worry whether your food would run out before you got money to buy more?: Never true Do you have trouble paying for medicines?: No Do you have trouble getting transportation to medical appointments?: No Do you have trouble paying your heating and electricity bill?: No Do you have trouble taking care of your child, family member or friend?: No Do you have trouble with day-to-day activities such as bathing, preparing meals, shopping, managing finances, etc.?: No Are you currently unemployed and looking for a job?: No Are you interested in more education?: No Please select the resources that you would like help with: None Currently or been in a relationship where the following occur: No concerns reported THRIVE Score: 0 AUDIT C Alcohol Use Questionnaire (AUDIT-C) 1. How often do you have a drink containing alcohol?: Never Total Score: 0 Score Reviewed/Action Taken: No CARMELO-7 AMB Questionnaire CARMELO-7 Date CARMELO - 7 assessed: 01/19/24 Feeling nervous, anxious, or on edge: 0 = Not at all Not being able to stop or control worryin = Not at all Worrying too much about different things: 0 = Not at all Trouble relaxin = Not at all Being so restless that it is hard to sit still: 0 = Not at all Becoming easily annoyed or irritable: 0 = Not at all Feeling afraid as if something awful might happen: 0 = Not at all Total CARMELO-7 score (0-4 normal; 5-9 mild; 10-14 moderate; 15-21 severe): 0 Source: Developed by Drs. Dirk Woodard, Cherise Beasley, Joshua Colindres and colleagues, with an educational mario from [employer]. CARMELO-7 Assessment Billing CARMELO-7 Assessment Tool: CARMELO-7 Assessment 98726 Review of Systems Const All systems reviewed & are unremarkable except as noted in HPI and below Card Denies chest pain at rest, Denies chest pain with activity, Denies edema, Denies irregular heart rhythm, Denies claudication, Denies dyspnea, Denies dyspnea on exertion, Denies orthopnea, Denies paroxysmal nocturnal dyspnea and Denies slow heart rate Resp Denies cough, Denies dyspnea and Denies dyspnea on exertion GI Denies abdominal pain, Denies change in bowel habits, Denies excessive flatus, Denies nausea and Denies vomiting Denies urinary hesitancy, Denies urinary incontinence and Denies urinary urgency Musc Denies atrophy, Denies deformity and Denies limited range of motion Skin/Breast Denies bleeding lesions, Denies changing lesions and Denies rash Physical exam (Primary Care) Vital Signs: Last Vital Signs BP 126/80 01/19/24 14:30 BMI result Body Mass Index 25.9 Tobacco/Smoking Status: Tobacco use Status Tobacco use date assessed 01/13/23 01/19/24 14:28 Patient Tobacco Use Status Never used Tobacco 01/19/24 14:28 e-Cigarette/Vaping Use Never Used 01/19/24 14:28 PHQ-9: PHQ-9 Score PHQ-9: Total score 0 01/19/24 14:28 Depression Screening Interpretation: Negative Thrive Assessment: Date of Thrive Assessment Date Thrive assessed 01/13/23 01/19/24 14:28 Currently or been in a relationship where the following occur: No concerns reported [facility] Head: Yes normal to inspection, Yes normocephalic and Yes atraumatic Ears: external ears normal Eyes General: appearance normal, both eyes and all related structures Eyelids: Yes eyelids normal Conjunctivae: conjunctivae normal Neck Neck: Yes normal visual inspection and Yes supple Resp Effort & Inspection: normal respiratory effort Auscultation: clear to auscultation bilaterally Cardio Jugular venous distension: no JVD Rate: regular rate Rhythm: regular rhythm Heart sounds: S1 normal heart sound present and S2 normal heart sound present GI Inspection: Yes normal to inspection Palpation (GI): Soft to palpation and nontender Auscultation: normal bowel sounds Skin General skin exam: no rashes or lesions noted Neuro General: no focal motor deficits Extrem General: Yes full ROM Psych Appearance: grossly normal Office Procedures Flu Questionnaire Does the patient have a severe egg allergy?: No Does the patient have severe life threatening allergies?: No Does the patient have a fever or illness today?: No Has the patient ever had Guillain-Cupertino Syndrome?: No Has the patient ever had any past reaction to a flu shot?: No Immunizations Fluarix Triv [id number] (PF) 45 mcg (15 mcg x 3)/0.5 mL IM syringe Performing Provider: Aminata Scott MD Performing Location: [facility] [place] [facility] Administered by: ALEJO Delgadillo on 01/19/24 14:49 Dose Route Admin Location Dispensed Lot Number Expiration Date [facility] [employer] Tech 0.5 mL IM Left Deltoid 0.5 mL [id number] 09/27/24 40582-544-00 [employer] VIS Given Date VIS Provided VIS Publication Date 01/19/24 Single Vaccine 20 Eligibility Eligibility Date Funding Source Not [facility] Eligible 01/19/24 Private Coding Level of Care Code Est Pt Prev Care 18-39y(64979) Diagnoses Physical exam Z00.00 Additional Codes CARMELO-7 Assessment Billing - CARMELO-7 Assessment Tool: CARMELO-7 Assessment 08551 ([id number]) Time Spent (min) 30 Assessment & Plan Assessment & Plan (1) Physical exam: Code(s): Z00.00 - Encounter for general adult medical examination without abnormal findings Category: Medical Plan: Repeat in a year. Orders: Orders Influenza [id number] Immunization Today Z23 - Encounter for immunization Medications: New Fluarix Triv [id number] (PF) (flu vacc [id number] 6mos up(PF)) 0.5 mL IM ONCE 0.5 mL 0RF NS Z23 - Encounter for immunization
[2024-01-19 14:30] VITALS: BP 126/80; BMI 25.9
== END 2024-01-19 14:48 | disposition home or self-care (01) ==
PROVIDERS: PCP Internal Medicine; Visit Provider Internal Medicine
DX: Z23 Encounter for immunization (principal); Z00.00 Encounter for general adult medical examination without abnormal findings

== ENCOUNTER → 2024-01-19 14:26 | Outpatient (BNVA) | payer BC, SELFPAY | PROVIDERS: PCP Internal Medicine; Visit Provider Internal Medicine | DX: Z00.00 Encounter for general adult medical examination without abnormal findings (principal); Z23 Encounter for immunization | CPT/HCPCS: 90471; 90656; 96127 ==

== ENCOUNTER 2024-02-09 09:57 | Outpatient (AMB) | payer BC, SELFPAY ==
--- NOTE | 2024-02-08 20:35 | A.OFFVIS_ITS ---
Intake Visit Reasons: 6m follow up Intake Note: Patient is present for 6M F/U Urology Medication:NONE Antibiotic Allergy:NONE Blood Thinner:NONE Thread Inspector Required: No Allergies hydroxyzine Allergy (Intermediate, Verified 02/09/24 10:43) Palpitations omeprazole Allergy (Verified 02/09/24 10:43) Itching famotidine Adverse Reaction (Verified 02/09/24 10:43) Itching shellfish derived Adverse Reaction (Verified 02/09/24 10:43) Itching HPI Comments Details: 02/09/24--6 month FU. Mauri is a 38-year-old male who presents today to the office for a follow-up. He was last seen on 08/14/2023 followed for chronic prostatis, pelvic pain. He states he has been doing very good. watching diet as discussed, no recent scrotal or pelvic pain or irritative voiding symptoms. Plan fu prn. Review of chart: 08/14/2023--Mauri is a 38-year-old male who presents today to the office for a follow-up. He was last seen 01/22/23 and treated for prostatitis with Augmentin. He had prior treatment of prostatitis with Levaquin. He is here today with complaints that he is occasionally noticing some pain in the scrotal area after intercourse it does not happen all the time and the pain is not as severe or constant has in the past. He states he has cut out all caffeine. He admits he has not been drinking a lot of water. I have discussed a trial of Flomax 0.4 mg daily after 2 weeks if he still has significant symptoms I would like him to call the nurse and I will consider another course of antibiotics at that time. 01/22/2023? The patient has a past medical history significant for anxiety, chronic GERD, hypercalcemia, and peptic ulcer disease. He was last seen by me on 07/18/2022 for history of prostatitis. The patient was advised to follow-up PRN during that time.? On prior evaluation he had a prostatic massage and fluid was sent for MicroGen testing which resulted positive for klebsiella bacteria and sensitive to quinolones. He was treated with a 10 day course of Levaquin. He states that the symptoms are coming back. Patient noted burning with urination. In review of MicroGen testing,the bacteria was also sensitive to Augmentin. UA?leuk neg, blood neg; Bladder scan PVR 0 mL. US abdomen results reviewed--05/10/22-- Unremarkable findings. Kidneys WNL and no renal calculi visualized.? PFSH Medical History Multiple duodenal ulcers Anxiety Hypercalcemia Tinnitus, left ear BPPV (benign paroxysmal positional vertigo) Peptic ulcer disease Chronic GERD Surgical History Hx of endoscopy Hx of esophagogastroduodenoscopy No pertinent past surgical history Family History Mother No problems noted. Father No problems noted. Sister Leukemia Social History Housing: Apartment Alcohol intake: never Patient Tobacco Use Status: Never used Tobacco e-Cigarette/Vaping Use: Never Used Second Hand Smoke Exposure: No service: No Current occupational status: employed Current occupational exposures/hazards: No Cognitive needs: No Hearing needs: No Vision needs: Yes Review of Systems Const All systems reviewed & are unremarkable except as noted in HPI and below Reports no additional complaints Eyes Reports no additional complaints ENT Reports no additional complaints Card Reports no additional complaints Resp Reports no additional complaints GI Reports no additional complaints Reports as per HPI Musc Reports no additional complaints Skin/Breast Reports system reviewed and no additional complaints, except as documented Neuro Reports no additional complaints Psych Reports no additional complaints Endo Reports no additional complaints Aguilar/Lymph Reports no additional complaints Aller/Immun Reports no additional complaints Results AMB Urinalysis, Automated UA Leukoctes 0 Anthony/uL Last Edit by CHEY Hannah on 02/09/24 11:05 UA Nitrite Negative Last Edit by CHEY Hannah on 02/09/24 11:05 UA Urobilinogen 0.2 mg/dL Last Edit by CHEY Hannah on 02/09/24 11:0 5 UA Protein 0 mg/dL Last Edit by CHEY Hannah on 02/09/24 11:05 UA pH 6.0 Last Edit by CHEY Hannah on 02/09/24 11:05 UA Blood 0 Philip/uL Last Edit by CHEY Hannah on 02/09/24 11:05 UA Specific [place] 1.010 Last Edit by CHEY Hannah on 02/09/24 11: 05 UA Ketone Negative Last Edit by CHEY Hannah on 02/09/24 11:05 UA Bilirubin 0 mg/dL Last Edit by CHEY Hannah on 02/09/24 11:05 UA Glucose 0 mg/dL Last Edit by CHEY Hannah on 02/09/24 11:05 Results Reviewed Results Reviewed: Laboratory Last Values Urine pH (Auto) 6.0 02/09/24 11:05 Specific [place] (Auto) 1.010 02/09/24 11:05 Urine Protein (Auto) 0 mg/dL 02/09/24 11:05 Glucose (UA)(Auto) 0 mg/dL 02/09/24 11:05 Urine Ketones (Auto) Negative 02/09/24 11:05 Urine Blood (Auto) 0 Philip/uL 02/09/24 11:05 Urine Nitrite (Auto) Negative 02/09/24 11:05 Urine Bilirubin (Auto) 0 mg/dL 02/09/24 11:05 Urine Urobilinogen (Auto) 0.2 mg/dL 02/09/24 11:05 Leukocyte Esterase (Auto) 0 Anthony/uL 02/09/24 11:05 Date of Service: 05/10/22 EXAMINATION: US ABDOMEN COMPLETE CLINICAL INFORMATION: Elevated LFTs, upper abdominal pain. COMPARISON: None TECHNIQUE: Real-time imaging of the abdominal viscera. FINDINGS: PANCREAS: The pancreas is normal size. It appears mildly hyperechoic. No focal lesion seen.. ABDOMINAL AORTA: The proximal, mid, and distal segments are normal in caliber. INFERIOR VENA CAVA: Visualized portions are normal. LIVER: The liver is normal in size. The liver contour is normal. Parenchymal echogenicity is increased. No focal hepatic lesion. There is no intrahepatic biliary duct dilatation seen. GALLBLADDER: Normal. The gallbladder is physiologically distended without evidence of stones, sludge, polyps, wall thickening or pericholecystic fluid. COMMON BILE DUCT: Normal in caliber measuring 0.5 cm in diameter. RIGHT KIDNEY: Normal. No hydronephrosis. No renal calculi or focal parenchymal lesions. The kidney measures 10.8 cm in maximum dimension. LEFT KIDNEY: Normal. No hydronephrosis. No renal calculi or focal parenchymal lesions. The kidney measures 10.8 cm in maximum dimension. SPLEEN: Normal. The spleen measures 10.8 cm in maximum dimension. FREE FLUID: None. IMPRESSION: 1. Diffusely echogenic liver without focal lesion. ? 2. Mild hyperechoic pancreas. ? 3. The rest of the abdominal ultrasound is unremarkable.? Assessment & Plan Assessment & Plan (1) Prostatitis: Code(s): N41.9 - Inflammatory disease of prostate, unspecified Category: Medical (2) Pain with urination: Code(s): R30.9 - Painful micturition, unspecified Category: Medical (3) Dysuria: Code(s): R30.0 - Dysuria Category: Medical Plan FU prn Orders: Orders AMB Urinalysis Automated 02/09/24 Z13.9 - Encounter for screening, unspecified Patient Instructions: The patient had an opportunity to ask questions regarding treatment plan. The patient expressed understanding and agreement with the above treatment plan. The patient is aware they should contact our office by phone for worsening of their current condition or the appearance of new symptoms. Compliance is encouraged with any medications and followup testing that is ordered. It is a privilege to be allowed the opportunity to participate in the urologic care of your patient. If you have any questions or concerns regarding treatment for the above conditions please do not hesitate to contact me. The office telephone contact is [phone]. This note is constructed in part using voice recognition software. While every effort has been made to ensure accuracy qualifications examiner errors may have been included. Yours sincerely, Deny Curtis MD Coding Level of Care Code Est Pt Level 3 (53094) Diagnoses Prostatitis N41.9 Pain with urination R30.9 Dysuria R30.0
== END 2024-02-09 11:24 | disposition home or self-care (01) ==
PROVIDERS: PCP Internal Medicine; Visit Provider Urology
DX: N41.9 Inflammatory disease of prostate, unspecified (principal); R30.9 Painful micturition, unspecified; R30.0 Dysuria
CPT/HCPCS: 99213

== ENCOUNTER → 2024-02-09 09:57 | Outpatient (BNVA) | payer BC, SELFPAY | PROVIDERS: PCP Internal Medicine; Visit Provider Urology | DX: N41.9 Inflammatory disease of prostate, unspecified (principal); R30.9 Painful micturition, unspecified; R30.0 Dysuria | CPT/HCPCS: 81003 ==

== ENCOUNTER 2025-01-26 14:14 | Outpatient (AMB) | payer BC, SELFPAY ==
--- OUTSIDE RECORDS SUMMARY | 2018-03-03 04:58 | XMS_ITS | Continuity of Care Document ---
Author Organization [employer] [facility] Address [address] [address] [place] [address] Phone Care Team Providers Care Supervisor Bonding Name Role Phone Ramos Morataya MD Unavailable Unavail able Allergies, Adverse Reactions, Alerts Substance Reaction Status Criticality No Known Allergies Active No Inform ation Medications Medication Instructions Dosage Effective Dates (start - stop) Status Comments omeprazole 40 mg capsule,delayed release take 1 capsule by oral route every day before a meal 40 MG - Active Procedures Procedure Date Offic/outpt E m [facility] S Advance Directives Directive Yes / No Effective Date File Name No Information Encounters Encounter Description Practice Location Reason(s) For Visit Diagnoses Date Provider Providers Copied on Encounter [facility] [facility], [address] [address], [place], [place], [id number], tel:[phone] [facility] No Information Rafia Beasley. [address] [facility], [place], [address], . tel:[phone] Offic[facility]outpt [facility], [address] [address], [place], [place], [id number], tel:[phone] [facility] Medicine Abdominal pain (chief complaint)- (chief complaint) Abdominal pain in male Rafia Beasley. [address] [place], [address], . tel:[phone] Family History Family Member Type Diagnosis Age At Onset No Information Payers Payer name Insurance type Covered democrat ID Authormarva whitney(s) No Information Social History Type Description Quantity Date Captured Comments Sex Male Smoking Status No Information Chief Complaint And Reason For Visit No Information Reason For Referral Reason For Referral No Information History Of Present Illness Encounter Date Complaint History Of Trev rey Illness Abdominal pain Onset: gradual. Duration is 1 Month. It occurs daily. Location is epigastric. There is radiation to back. The patient describes it as aching and bloating. Context: after meals. Symptom is aggravated by fatty foods and coffee. Relieving factors include Prilosec OTC. Additional information: He reports he went to clinic at [facility] and they advised him to eat more healthy and take Omeprazole 40 mg daily. That helped for a short time until he started eating fast food again. - He is originally from [facility]. No recent travel though. 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 Denies tobacco, alcohol or drug use. Coffee was making his symptoms worse so he stopped that. Functional Status Date Functional Assessmen t No Information Instructions Date Instruction Additional Infor demian Advised patient my s uspicion is still that he just has gastritis as most of the foods he is eating would cause his symptoms. Possible H. pylori. PPI no longer helping though although he admits his diet could be better. He is worried about other possibilities and brought up some possible acholic stools. Will check labs, if they are normal, I will have him hold his PPI while he stays on a the liberal bland diet. Educational handouts given with examples of things to avoid in his diet. Plan to check H. pylori stool antigen in two weeks if his labs are normal. He agrees. Related to Abdominal pain in male Assessments Type Assessment Date No Information Patient Care Teams Name Effective Dates (start - stop) Status Members No Information
--- NOTE | 2025-01-26 14:18 | A.OFFPC_ITS ---
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: No Accompanied by: Self / Same As Patient Allergies hydroxyzine Allergy (Intermediate, Verified 01/26/25 14:44) Palpitations omeprazole Allergy (Verified 01/26/25 14:44) Itching famotidine Adverse Reaction (Verified 01/26/25 14:44) Itching shellfish derived Adverse Reaction (Verified 01/26/25 14:44) Itching Medication List - Last Reconciled 01/26/25 by Aminata Scott MD No Known Home Meds Tobacco use date assessed: 01/26/25 Dental Screening Dental Screen Date: 01/26/25 Did you have a dental visit in the last 12 months?: Yes Did you have a dental problem in the last 6 months where you did not have access to dental care?: No Was dental information given to patient?: Patient has dentist HPI HPI Comments History of Present Illness Details The patient is a 39-year-old male presenting for an annual physical exam and to discuss a reasonable accommodation request for work. He has a history of gastroesophageal reflux disease (GERD), which he reports causes significant stress and makes it difficult to manage his health and productivity, especially with a recent change in his work's telework policy. He manages his GERD by undergoing food intolerance tests every 3-4 months to guide his diet, which has been helpful but is difficult to maintain. Past surgical history includes an endoscopy in 2022 and a cystoscopy approximately a year and a half ago, which resulted in a diagnosis of prostatitis that was treated with antibiotics. The patient has known allergies to hydroxyzine (causes palpitations), omeprazole, famotidine, and shellfish. He takes no current medications. Family history is noncontributory, with both parents alive and without health problems. He does not smoke tobacco or drink alcohol. He reports trouble sleeping but denies depression, with a PHQ-9 score of 2. [facility] Medical History Multiple duodenal ulcers Anxiety Hypercalcemia Tinnitus, left ear BPPV (benign paroxysmal positional vertigo) Peptic ulcer disease Chronic GERD Surgical History H/O cystoscopy Hx of endoscopy Hx of esophagogastroduodenoscopy No pertinent past surgical history Family History Mother No problems noted. Father No problems noted. Sister Leukemia Social History Housing: Apartment Alcohol intake: never Patient Tobacco Use Status: Never used Tobacco e-Cigarette/Vaping Use: Never Used Second Hand Smoke Exposure: No service: No Current occupational status: employed Current occupational exposures/hazards: No Cognitive needs: No Hearing needs: No Vision needs: Yes Questionnaire PHQ-9 Over the last 2 weeks, how often have you been bothered by any of the following problems? 1. Little interest or pleasure in doing things: not at all 2. Feeling down, depressed, or hopeless: not at all 3. Trouble falling or staying asleep, or sleeping too much: several days 4. Feeling tired or having little energy: not at all 5. Poor appetite or overeating: several days 6. Feeling bad about yourself - or that you are a failure or have let yourself or your family down: not at all 7. Trouble concentrating on things, such as reading the newspaper or watching television: not at all 8. Moving or speaking so slowly that other people could have noticed. Or the opposite - being so fidgety or restless that you have been moving around a lot more than usual: not at all 9. Thoughts that you would be better off or of hurting yourself in some way: not at all Total score: 2 Depression Screening Interpretation: Negative Depression Screening Done: Yes 42802 - PHQ-9 Billing: Yes Source: Developed by Drs. Dirk Woodard, Cherise Beasley, Joshua Colindres and colleagues, with an educational mario from [employer]. Thrive Questionnaire Date Thrive assessed: 01/26/25 I am a: Patient What is your living situation today?: I have a steady place to live Within the past 12 months, did the food you bought not last and you didn't have the money to get more?: Never true Within the past 12 months, did you worry whether your food would run out before you got money to buy more?: Never true Do you have trouble paying for medicines?: No Do you have trouble getting transportation to medical appointments?: No Do you have trouble paying your heating and electricity bill?: No Do you have trouble taking care of your child, family member or friend?: No Do you have trouble with day-to-day activities such as bathing, preparing meals, shopping, managing finances, etc.?: No Are you currently unemployed and looking for a job?: No Are you interested in more education?: No Please select the resources that you would like help with: None Currently or been in a relationship where the following occur: No concerns reported THRIVE Score: 0 AUDIT C Alcohol Use Questionnaire (AUDIT-C) 1. How often do you have a drink containing alcohol?: Never 3. How often do you have six or more drinks on one occasion?: Never Total Score: 0 Score Reviewed/Action Taken: No CARMELO-7 AMB Questionnaire CARMELO-7 Date CARMELO - 7 assessed: 01/26/25 Feeling nervous, anxious, or on edge: 1 = Several days Not being able to stop or control worryin = Not at all Worrying too much about different things: 1 = Several days Trouble relaxin = Not at all Being so restless that it is hard to sit still: 0 = Not at all Becoming easily annoyed or irritable: 1 = Several days Feeling afraid as if something awful might happen: 0 = Not at all Total CARMELO-7 score (0-4 normal; 5-9 mild; 10-14 moderate; 15-21 severe): 3 Source: Developed by Drs. Dirk Woodard, Cherise Beasley, Joshua Colindres and colleagues, with an educational mario from [employer]. CARMELO-7 Assessment Billing CARMELO-7 Assessment Tool: CARMELO-7 Assessment 29777 Review of Systems Const All systems reviewed & are unremarkable except as noted in HPI and below Card Denies chest pain at rest, Denies chest pain with activity, Denies edema, Denies irregular heart rhythm, Denies claudication, Denies dyspnea, Denies dyspnea on exertion, Denies orthopnea, Denies paroxysmal nocturnal dyspnea and Denies slow heart rate Resp Denies cough, Denies dyspnea and Denies dyspnea on exertion GI Denies abdominal pain, Denies change in bowel habits, Denies excessive flatus, Denies nausea and Denies vomiting Denies urinary hesitancy, Denies urinary incontinence and Denies urinary urgency Musc Denies abnormal gait, Denies atrophy, Denies deformity and Denies limited range of motion Skin/Breast Denies bleeding lesions, Denies changing lesions and Denies rash Neuro Denies abnormal gait and Denies lack of coordination Physical exam (Primary Care) Vital Signs: Last Vital Signs Pulse 71 01/26/25 14:19 BP 100/80 01/26/25 14:19 Pulse Ox 98 01/26/25 14:19 Oxygen Delivery Method Room Air 01/26/25 14:19 BMI result Body Mass Index 25.9 Tobacco/Smoking Status: Tobacco use Status Tobacco use date assessed 01/26/25 01/26/25 14:25 Patient Tobacco Use Status Never used Tobacco 01/26/25 14:25 e-Cigarette/Vaping Use Never Used 01/26/25 14:25 PHQ-9: PHQ-9 Score PHQ-9: Total score 2 01/26/25 14:48 Depression Screening Interpretation: Negative Thrive Assessment: Date of Thrive Assessment Date Thrive assessed 01/26/25 01/26/25 14:25 Currently or been in a relationship where the following occur: No concerns reported [facility] Head: Yes normal to inspection, Yes normocephalic and Yes atraumatic Ears: external ears normal Eyes General: appearance normal, both eyes and all related structures Eyelids: Yes eyelids normal Conjunctivae: conjunctivae normal Neck Neck: Yes normal visual inspection and Yes supple Resp Effort & Inspection: normal respiratory effort Auscultation: clear to auscultation bilaterally Cardio Jugular venous distension: no JVD Rate: regular rate Rhythm: regular rhythm Heart sounds: S1 normal heart sound present and S2 normal heart sound present GI Inspection: Yes normal to inspection Palpation (GI): Soft to palpation and nontender Auscultation: normal bowel sounds Skin General skin exam: no rashes or lesions noted Neuro General: no focal motor deficits Extrem General: Yes full ROM Psych Appearance: grossly normal Office Procedures Flu Questionnaire Does the patient have a severe egg allergy?: No Does the patient have severe life threatening allergies?: No Does the patient have a fever or illness today?: No Has the patient ever had Guillain-[place] Syndrome?: No Has the patient ever had any past reaction to a flu shot?: No Immunizations Fluarix [id number] (PF) 45 mcg (15 mcg x 3)/0.5 mL IM syringe Performing Provider: Aminata Scott MD [facility] Administered by: ALEJO Lucas on 01/26/25 15:10 Dose Route Admin Location Dispensed Lot Number Expiration Date NDC Master Sheet Clerk 0.5 mL IM Left Deltoid 0.5 mL [id number] 09/27/25 [id number] [employer] VIS Given Date VIS Provided VIS Publication Date 01/26/25 Single Vaccine 24 Eligibility Eligibility Date Funding Source Not [facility] Eligible 01/26/25 Private Coding Level of Care Code Est Pt Prev Care 18-39y(57150) Diagnoses Physical exam Z00.00 Chronic GERD K21.9 Additional Codes PHQ-9 - 11361 - PHQ-9 Billing: Yes ([id number]) CARMELO-7 Assessment Billing - CARMELO-7 Assessment Tool: CARMELO-7 Assessment 22516 ([id number]) Time Spent (min) 31 Assessment & Plan Assessment & Plan (1) Physical exam: Code(s): Z00.00 - Encounter for general adult medical examination without abnormal findings Category: Medical (2) Chronic GERD: Code(s): K21.9 - Gastro-esophageal reflux disease without esophagitis Category: Medical Plan Plan 1. Encounter for general adult medical examination without abnormal findings Z00.00 The patient will receive an influenza vaccination today. Routine blood work, including monitoring of liver levels, is ordered with an 8-hour fasting requirement. 2. Gastro-esophageal reflux disease without esophagitis K21.9 The patient's GERD is exacerbated by work-related stress, impacting his health and productivity. A discussion was held regarding his request for a reasonable work accommodation to telework three days per week. The patient will obtain the necessary forms from his employer and drop them off for completion. A follow-up appointment in May will be kept to reassess if needed. Orders: Orders Influenza [id number] Immunization Today Z23 - Encounter for immunization Lipid Panel Today E78.5 - Hyperlipidemia, unspecified Comprehensive [place]. Panel Fast Today Z00.00 - Encounter for general adult medical examination without abnormal findings
[2025-01-26 14:19] VITALS: BP 100/80; PULSE 71; O2SAT 98; BMI 25.9
== END 2025-01-26 15:08 | disposition home or self-care (01) ==
LOC: HO.HMCH 14:15
PROVIDERS: PCP Internal Medicine; Visit Provider Internal Medicine
DX: Z00.00 Encounter for general adult medical examination without abnormal findings (principal); K21.9 Gastro-esophageal reflux disease without esophagitis; Z23 Encounter for immunization

== ENCOUNTER → 2025-01-26 14:14 | Outpatient (BNVA) | payer BC, SELFPAY | PROVIDERS: PCP Internal Medicine; Visit Provider Internal Medicine | DX: Z00.00 Encounter for general adult medical examination without abnormal findings (principal); K21.9 Gastro-esophageal reflux disease without esophagitis; E78.5 Hyperlipidemia, unspecified; Z23 Encounter for immunization | CPT/HCPCS: 90471; 90656; 96127 ==